=== PATIENT | male | born 1960 | race American Indian/Alaskan Native ===

== ENCOUNTER 2016-04-08 16:35 | Emergency (ER) | payer MEDICARE ==
[2016-04-08] MEDS ORDERED: DECADRON IM ONE (19:50)
[2016-04-08] MEDS ORDERED: MORPHINE IM ONE (19:50)
--- NOTE | 2016-04-08 19:55 | Emergency Department Report ---
ED Back Pain/Injury HPI - General Chief Complaint: Back Pain/Injury Stated Complaint: BACK PAIN Time Seen by Provider: 04/08/16 19:04 Source: patient Limitations: No Limitations - History of Present Illness Initial Comments: Patient is a 55-year-old male with history of chronic back pain who presents due to low back pain 3 days, patient states that he slept on the couch 3 days ago and has had severe back pain since then. Patient states that he injured his back 10 years ago and has had lumbar spine surgery. Patient states that he sees Dr. De Leon for his back pain and has an appointment in 2 weeks. Patient denies any numbness, tingling, urinary or bowel incontinence. Chin denies dysuria, hematuria or frequency. MD Complaint: back pain Onset/Timin -: days(s) Similar Symptoms Previously: Yes Place: home Radiation: none Severity: severe Severity scale (0 -10): 10 Quality: burning, sharp Consistency: constant Improves With: none Worsens With: walking Context: unknown Associated Symptoms: denies other symptoms - Related Data Home Medications Medication Instructions Recorded Confirmed Last Taken Lisinopril/Hydrochlorothiazide 20 mg PO DAILY 12/03/14 12/03/14 Unknown [Zestoretic 20-25 mg] Previous Rx's Medication Instructions Recorded Last Taken Type Cyclobenzaprine [Flexeril 10 MG 10 mg PO TID PRN #20 tablet 12/03/14 Unknown Rx TAB] HYDROcodone/APAP 10-325 [Lindstrom 1 each PO Q8HR PRN #20 tablet 12/03/14 Unknown Rx 10/325] Naproxen [Naprosyn TAB] 500 mg PO BID PRN #20 tablet 12/03/14 Unknown Rx HYDROcodone/APAP 5-325 [Lindstrom 1 each PO Q6HR PRN #10 tablet 04/15/15 Unknown Rx 5/325] HYDROcodone/APAP 7.5-325 [Lindstrom 1 each PO Q6HR PRN #15 tablet 04/08/16 Unknown Rx 7.5-325 mg TAB] Ibuprofen [Motrin 800 MG tab] 800 mg PO Q8HR PRN #30 tablet 04/08/16 Unknown Rx methOCARBAMOL [Robaxin TAB] 500 mg PO Q8HR PRN #15 tablet 04/08/16 Unknown Rx Allergies Allergy/AdvReac Type Severity Reaction Status Date / Time No Known Allergies Allergy Verified 04/08/16 16:56 ED Review of Systems ROS: Stated complaint: BACK PAIN Other details as noted in HPI Comment: All other systems reviewed and negative Constitutional: no symptoms reported. denies: chills, diaphoresis, fever, malaise, weakness Eyes: denies: eye pain, eye discharge, vision change Respiratory: no symptoms reported Cardiovascular: denies: chest pain, palpitations, dyspnea on exertion Endocrine: no symptoms reported Gastrointestinal: denies: abdominal pain, nausea, vomiting, diarrhea, melena Genitourinary: denies: urgency, dysuria, frequency, hematuria, testicular pain, testicular mass Musculoskeletal: back pain. denies: joint swelling, arthralgia Skin: denies: rash Neurological: denies: headache, numbness, paresthesias, confusion ED Past Medical Hx - Past Medical History Hx Hypertension: Yes Hx Arthritis: Yes Additional medical history: CHRONIC BACK PAIN - Surgical History Hx Appendectomy: Yes Additional Surgical History: Back surgery X 3 - Social History Smoking Status: Never Smoker Substance Use Type: Prescribed - Medications Home Medications: Home Medications Medication Instructions Recorded Confirmed Last Taken Type Cyclobenzaprine [Flexeril 10 MG 10 mg PO TID PRN #20 tablet 12/03/14 Unknown Rx TAB] HYDROcodone/APAP 10-325 [Lindstrom 1 each PO Q8HR PRN #20 tablet 12/03/14 Unknown Rx 10/325] Lisinopril/Hydrochlorothiazide 20 mg PO DAILY 12/03/14 12/03/14 Unknown History [Zestoretic 20-25 mg] Naproxen [Naprosyn TAB] 500 mg PO BID PRN #20 tablet 12/03/14 Unknown Rx HYDROcodone/APAP 5-325 [Lindstrom 1 each PO Q6HR PRN #10 tablet 04/15/15 Unknown Rx 5/325] HYDROcodone/APAP 7.5-325 [Lindstrom 1 each PO Q6HR PRN #15 tablet 04/08/16 Unknown Rx 7.5-325 mg TAB] Ibuprofen [Motrin 800 MG tab] 800 mg PO Q8HR PRN #30 tablet 04/08/16 Unknown Rx methOCARBAMOL [Robaxin TAB] 500 mg PO Q8HR PRN #15 tablet 04/08/16 Unknown Rx ED Physical Exam - General Limitations: No Limitations General appearance: alert, in no apparent distress - Head Head exam: Present: atraumatic, normocephalic, normal inspection - Eye Eye exam: Present: normal appearance, PERRL, EOMI Pupils: Present: normal accommodation - Neck Neck exam: Present: normal inspection, full ROM. Absent: tenderness, meningismus, lymphadenopathy, thyromegaly - Respiratory Respiratory exam: Present: normal lung sounds bilaterally. Absent: respiratory distress, wheezes, rales, rhonchi, stridor, chest wall tenderness - Cardiovascular Cardiovascular Exam: Present: regular rate, normal rhythm, normal heart sounds - GI/Abdominal GI/Abdominal exam: Present: soft, normal bowel sounds. Absent: distended, tenderness, guarding, rebound, rigid - Extremities Exam Extremities exam: Present: normal inspection, full ROM. Absent: tenderness - Back Exam Back exam: Present: tenderness (patient had tenderness with palpation of his mid lumbar spine, there was a visible previous surgical scar. No erythema no edema.), paraspinal tenderness, vertebral tenderness. Absent: CVA tenderness (R ), CVA tenderness (L), muscle spasm, rash noted - Neurological Exam Neurological exam: Present: alert, oriented X3, CN II-XII intact, normal gait, reflexes normal, other (no neurological focal deficits, sensory function was intact, motor strength was 5 out of 5. Patient had normal gait and ambulation.) . Absent: motor sensory deficit ED Course Vital Signs 04/08/16 16:58 Temperature 97.6 F Pulse Rate 82 Respiratory 19 Rate Blood Pressure 121/82 O2 Sat by Pulse 99 Oximetry ED Medical Decision Making - Medical Decision Making Patient was in no acute distress, patient had no neurological focal deficits, motor strength was 5 out of 5, normal gait and ambulation. Patient refuses any x-rays or CTs of his lumbar spine. Patient states that he has an appointment in 2 weeks and wants to follow up with his clin application specialist. Patient stated that he only wanted pain medicine to last him until he could see his clin application specialist in 2 weeks. Patient denies any urinary or bowel incontinence, he denied any numbness or tingling sensation. Patient denied any falls or trauma to his back. Patient thinks he aggravated his back by sleeping on the couch. - Differential Diagnosis number strain, muscle spasms, lumbar radiculopathy Critical care attestation.: If time is entered above; I have spent that time in minutes in the direct care of this critically ill patient, excluding procedure time. ED Disposition Clinical Impression: Muscle spasm of back Lumbar strain Qualifiers: Encounter type: initial encounter Qualified Code(s): S39.012A - Strain of muscle, fascia and tendon of lower back, initial encounter Disposition: DISCHARGED TO HOME OR SELFCARE Is pt being admited?: No Does the pt Need Aspirin: No Condition: Good Instructions: Muscle Strain (ED) Additional Instructions: Take hydrocodone 7.5 mg every 6 hours as needed for severe pain, take ibuprofen 100 mg every 8 hours as needed for moderate pain. Take Robaxin 500 mg every 8 hours as needed for muscle spasms. Follow-up with your clin application specialist of the provided clin application specialist for further evaluation of your back. Return to the ER if he started having any urinary or bowel incontinence, return to the ED if he started having numbness or tingling in the lower extremities. Prescriptions: HYDROcodone/APAP 7.5-325 [Lindstrom 7.5-325 mg TAB] 1 each PO Q6HR PRN #15 tablet PRN Reason: Pain Ibuprofen [Motrin 800 MG tab] 800 mg PO Q8HR PRN #30 tablet PRN Reason: Pain methOCARBAMOL [Robaxin TAB] 500 mg PO Q8HR PRN #15 tablet PRN Reason: Muscle Spasm Referrals: PRIMARY CARE, [Primary Care Provider] - 3-5 Days Time of Disposition: 19:58
[2016-04-08 20:10] VITALS: BP 120/78
== END 2016-04-08 20:16 | disposition home or self-care (01) ==
LOC: ED 16:35
DX: S39.012A Strain of muscle, fascia and tendon of lower back, initial encounter (principal); M62.830 Muscle spasm of back; I10 Essential (primary) hypertension; M19.90 Unspecified osteoarthritis, unspecified site; G89.29 Other chronic pain; Z90.49 Acquired absence of other specified parts of digestive tract; X58.XXXA Exposure to other specified factors, initial encounter; Y93.89 Activity, other specified; Y99.8 Other external cause status; Y92.098 Other place in other non-institutional residence as the place of occurrence of the external cause
CPT/HCPCS: 96372; 99282; J1100; J2270

== ENCOUNTER 2016-04-20 11:34 | Emergency (ER) | payer MEDICARE ==
[2016-04-20 11:45] VITALS: BP 135/70
== END 2016-04-20 14:40 | disposition left against medical advice (07) ==
LOC: ED 11:34
DX: R20.0 Anesthesia of skin (principal); M25.512 Pain in left shoulder; I10 Essential (primary) hypertension; M19.90 Unspecified osteoarthritis, unspecified site; G89.29 Other chronic pain; Z53.21 Procedure and treatment not carried out due to patient leaving prior to being seen by health care provider

== ENCOUNTER 2017-10-28 09:27 | Inpatient (IN) | payer MEDICARE ==
[2017-10-28] MEDS ORDERED: NACL 0.9% 1000 ML IV ONE (11:33)
[2017-10-28] MEDS ORDERED: ZOSYN/NS 4.5GM/100ML 4.5 GM/100 ML VIAL IV ONE (11:34)
[2017-10-28] MEDS ORDERED: TORADOL IV ONE (11:35)
[2017-10-28] MEDS ORDERED: DILAUDID IV ONE ×2 (11:35→15:21)
[2017-10-28] MEDS ORDERED: ZOFRAN IV ONE (11:35)
--- NOTE | 2017-10-28 11:36 | Emergency Department Report ---
Blank Doc - Documentation Documentation: Patient is a 57-year-old -[place] male who's had 3-4 days of nausea and diffuse abdominal pain. Patient had a recent road trip to [place] has some increased back pain over his baseline however he states that the majority of his pain is is abdominal. Patient says some nausea vomiting as well. Patient denies diarrhea. A focused physical exam patient is very tender to palpation with some voluntary guarding. There is no rebound tenderness. Patient is tachycardic and diaphoretic. Patient is in moderate distress secondary to pain. Patient will be started on sepsis protocol. Patient will be sent to the main ED for additional treatment.
[2017-10-28 12:21] LABS: Basophils # (Auto) 0.1 K/mm3 (0.0-0.1); Basophils % (Auto) 0.5 % (0.0-1.8); Eosinophils # (Auto) 0.2 K/mm3 (0.0-0.4); Eosinophils % (Auto) 1.1 % (0.0-4.3); Hematocrit 45.8 % (35.5-45.6); Hemoglobin 15.8 gm/dl (11.8-15.2); Lymphocytes # (Auto) 0.9 K/mm3 (1.2-5.4); Lymphocytes % (Auto) 5.6 % (13.4-35.0); Mean Corpuscular HGB Conc 35 % (32-34); Mean Corpuscular Hemoglobin 32 pg (28-32); Mean Corpuscular Volume 91 fl (84-94); Monocytes # (Auto) 0.8 K/mm3 (0.0-0.8); Monocytes % (Auto) 4.8 % (0.0-7.3); Platelet Count 210 K/mm3 (140-440); Red Blood Count 5.02 M/mm3 (3.65-5.03); Red Cell Distribution Width 13.9 % (13.2-15.2)
--- NOTE | 2017-10-28 12:26 | Emergency Department Report ---
ED Abdominal Pain HPI - General Chief Complaint: Back Pain/Injury Stated Complaint: BACK PAIN Time Seen by Provider: 10/28/17 11:28 Source: patient Mode of arrival: Wheelchair Limitations: No Limitations - History of Present Illness Initial Comments: 57-year-old male with history of hypertension and chronic back pain presents to the ED with complaints of abdominal pain fever and chills. She states pain and chills started one week ago, located in the periumbilical area. States pain was intermittent at the time, with nausea and vomiting. Patient denies diarrhea. States last bowel movement was today, small amount of stool. Patient denies dysuria, hematuria, or urinary frequency. Patient into ED today because pain became worse and generalized across entire stomach. Patient first past surgical history of appendectomy. MD Complaint: abdominal pain -: week(s) (1) Location: diffuse Radiation: none Migration to: no migration Severity: severe Quality: cramping, fullness Consistency: constant Improves With: nothing Worsens With: nothing Associated Symptoms: nausea, vomiting, fever, chills. denies: dysuria - Related Data Home Medications Medication Instructions Recorded Confirmed Last Taken Lisinopril/Hydrochlorothiazide 20 mg PO DAILY 12/03/14 12/03/14 Unknown [Zestoretic 20-25 mg] Previous Rx's Medication Instructions Recorded Last Taken Type Cyclobenzaprine [Flexeril 10 MG 10 mg PO TID PRN #20 tablet 12/03/14 Unknown Rx TAB] HYDROcodone/APAP 10-325 [Josephine 1 each PO Q8HR PRN #20 tablet 12/03/14 Unknown Rx 10/325] Naproxen [Naprosyn TAB] 500 mg PO BID PRN #20 tablet 12/03/14 Unknown Rx HYDROcodone/APAP 5-325 [Josephine 1 each PO Q6HR PRN #10 tablet 04/15/15 Unknown Rx 5/325] HYDROcodone/APAP 7.5-325 [Josephine 1 each PO Q6HR PRN #15 tablet 04/08/16 Unknown Rx 7.5-325 mg TAB] Ibuprofen [Motrin 800 MG tab] 800 mg PO Q8HR PRN #30 tablet 04/08/16 Unknown Rx methOCARBAMOL [Robaxin TAB] 500 mg PO Q8HR PRN #15 tablet 04/08/16 Unknown Rx Allergies Allergy/AdvReac Type Severity Reaction Status Date / Time No Known Allergies Allergy Verified 04/08/16 16:56 ED Review of Systems ROS: Stated complaint: BACK PAIN Other details as noted in HPI Comment: All other systems reviewed and negative Constitutional: chills, diaphoresis, fever Gastrointestinal: abdominal pain, nausea, vomiting, constipation. denies: diarrhea ED Past Medical Hx - Past Medical History Hx Hypertension: Yes Hx Arthritis: Yes Additional medical history: CHRONIC BACK PAIN - Surgical History Hx Appendectomy: Yes Additional Surgical History: Back surgery X 3 - Social History Smoking Status: Current Every Day Smoker Substance Use Type: Alcohol, Marijuana - Medications Home Medications: Home Medications Medication Instructions Recorded Confirmed Last Taken Type Cyclobenzaprine [Flexeril 10 MG 10 mg PO TID PRN #20 tablet 12/03/14 Unknown Rx TAB] HYDROcodone/APAP 10-325 [Josephine 1 each PO Q8HR PRN #20 tablet 12/03/14 Unknown Rx 10/325] Lisinopril/Hydrochlorothiazide 20 mg PO DAILY 12/03/14 12/03/14 Unknown History [Zestoretic 20-25 mg] Naproxen [Naprosyn TAB] 500 mg PO BID PRN #20 tablet 12/03/14 Unknown Rx HYDROcodone/APAP 5-325 [Josephine 1 each PO Q6HR PRN #10 tablet 04/15/15 Unknown Rx 5/325] HYDROcodone/APAP 7.5-325 [Josephine 1 each PO Q6HR PRN #15 tablet 04/08/16 Unknown Rx 7.5-325 mg TAB] Ibuprofen [Motrin 800 MG tab] 800 mg PO Q8HR PRN #30 tablet 04/08/16 Unknown Rx methOCARBAMOL [Robaxin TAB] 500 mg PO Q8HR PRN #15 tablet 04/08/16 Unknown Rx ED Physical Exam - General Limitations: No Limitations General appearance: alert, other (obvious pain) - Head Head exam: Present: atraumatic, normocephalic - Eye Eye exam: Present: normal appearance - ENT ENT exam: Present: mucous membranes moist - Neck Neck exam: Present: normal inspection - Respiratory Respiratory exam: Present: normal lung sounds bilaterally. Absent: respiratory distress - Cardiovascular Cardiovascular Exam: Present: normal rhythm, tachycardia - GI/Abdominal GI/Abdominal exam: Present: distended (mild distention), tenderness (diffusely tender), diminished bowel sounds. Absent: bruit, pulsatile mass - Extremities Exam Extremities exam: Present: normal inspection - Neurological Exam Neurological exam: Present: alert, oriented X3 - Psychiatric Psychiatric exam: Present: normal affect, normal mood - Skin Skin exam: Present: warm, dry, intact, normal color ED Course Vital Signs 10/28/17 10/28/17 10/28/17 09:36 12:35 12:46 Temperature 100.2 F H Pulse Rate 116 H 93 H Respiratory 20 23 22 Rate Blood Pressure 103/53 142/58 O2 Sat by Pulse 96 97 Oximetry 10/28/17 10/28/17 10/28/17 13:00 13:23 13:34 Temperature Pulse Rate 97 H 88 Respiratory 17 20 21 Rate Blood Pressure 126/58 112/65 O2 Sat by Pulse 96 98 Oximetry 10/28/17 10/28/17 10/28/17 13:46 14:00 14:16 Temperature Pulse Rate 81 83 81 Respiratory 21 23 16 Rate Blood Pressure 112/65 112/65 128/65 O2 Sat by Pulse 98 97 97 Oximetry 10/28/17 10/28/17 14:30 14:42 Temperature 97.7 F Pulse Rate 79 Respiratory 22 Rate Blood Pressure 128/65 O2 Sat by Pulse 97 Oximetry - Consultations Consultation #1: 10/28/17 14:43 Spoke w/ gen surgeon, Dr Najera, aware of pt. States will take pt to OR. ED Medical Decision Making - Lab Data Result diagrams: 10/28/17 11:52 10/28/17 11:52 - Medical Decision Making 57-year-old male with perforated diverticulitis. Elevated white blood cell count, lactic acid normal. Spoke with Dr. Najera, general surgeon. Will take patient to the OR. Dr. Dwyer hospitalist to admit. Has already received one dose of Zosyn. Pain and vital signs improved. - Differential Diagnosis diverticulitis, perforated viscous, peritonitis, pancreatitis Critical care attestation.: If time is entered above; I have spent that time in minutes in the direct care of this critically ill patient, excluding procedure time. ED Disposition Clinical Impression: Perforation of sigmoid colon due to diverticulitis Disposition: [id number]-TRM GEN HOSP IP Is pt being admited?: Yes Condition: Stable Time of Disposition: 14:50
[2017-10-28] MEDS ORDERED: NACL 0.9% 100 ML ONE (12:36)
[2017-10-28 12:43] LABS: Alanine Aminotransferase 59 units/L (7-56); Albumin 4.6 g/dL (3.9-5); BUN/Creatinine Ratio 22; Blood Urea Nitrogen 22 mg/dL (9-20); Calcium 9.8 mg/dL (8.4-10.2); Hemolysis Index 1
[2017-10-28 13:04] LABS: Bilirubin,Urine NEG (Negative); Blood,Urine NEG (Negative); Color,Urine Amber (Yellow); WBC,Urine < 1.0 /HPF (0.0-6.0)
[2017-10-28] MEDS ORDERED: NACL 0.9% 1000 ML 1,000 ML ONE ×2 (13:34→16:44)
--- NOTE | 2017-10-28 13:46 | XRay Report ---
FINAL REPORT EXAM: XR ABD SERIES W CXR 1V HISTORY: abd pain COMPARISON: None. TECHNIQUE: Frontal view of the chest and three views of the abdomen FINDINGS: The cardiomediastinal silhouette is normal in appearance. The lungs are clear without focal consolidation. No pleural effusion or pneumothorax. Nonobstructive bowel gas pattern. No free air. No abnormal calcification. No organomegaly. No acute bony or soft tissue abnormality. Posterior fusion hardware is seen in the lower lumbar spine. IMPRESSION: Nonobstructive bowel gas pattern. No acute cardiopulmonary disease.
--- NOTE | 2017-10-28 14:10 | Cat Scan Report ---
FINAL REPORT EXAM: CT ABDOMEN PELVIS W CON HISTORY: abd pain COMPARISON: None. TECHNIQUE: Multiple contiguous axial images were obtained from the lung bases to the pubic symphysis after administration of IV contrast. Reformatted sagittal and coronal images were available for review. FINDINGS: Lung bases: Streaky atelectasis at the bilateral lung bases. Visualized heart and mediastinum: Normal. Liver: Normal. Spleen: Normal. Pancreas: Normal. Gallbladder and Biliary Tree: No calcified gallstones. No biliary ductal dilatation. Adrenal glands: Normal. Kidneys: Symmetric enhancement to both kidneys. No hydronephrosis. 2.8 centimeter simple appearing cyst in the superior pole of the right kidney. Bladder: Normal. Pelvic organs: Normal. Bowel: Diverticulosis of the sigmoid colon with adjacent focus of fluid and air measuring 1.5 centimeters. No evidence obstruction. Normal appendix. Peritoneum: Scattered foci of free air throughout the abdomen. No free fluid. Vasculature: Normal caliber of the abdominal aorta with atherosclerotic plaque and calcification. Normal appearance of the portal venous system and the inferior vena cava. Bones and soft tissues: No suspicious osseous lesions. No acute fracture or dislocation. Posterior fusion hardware is seen at L5-S1. Soft tissues are normal. IMPRESSION: Findings are compatible with acute diverticulitis with associated perforation. 1.5 centimeter fluid and air collection adjacent to the sigmoid colon. Scattered foci of free intraperitoneal air. Findings were discussed with Dr. Garduno at 2:09 p.m., Eastern standard time, on 10/28/2017.
[2017-10-28] MEDS ORDERED: XYLOCAINE MPF 2% ONE (15:49)
[2017-10-28] MEDS ORDERED: DIPRIVAN 10 MG/ML IV ONE (15:49)
[2017-10-28] MEDS ORDERED: ZEMURON IV ONE ×2 (15:49→17:40)
[2017-10-28] MEDS ORDERED: DILAUDID ONE (15:52)
--- NOTE | 2017-10-28 16:10 | History and Physical Report ---
History of Present Illness Date of examination: 10/28/17 Date of admission: 10/28/2017 Chief complaint: Chief complaint Severe abdominal pain off and on for one week History of present illness: History of Present Illness: 57-year-old black male with history of hypertension and chronic back pain comes in for severe abdominal pain fever and chills which started one week ago. Abdominal pain has been intermittent and sharp in nature. Pain is about 8 on a scale of 1-10. Associated with nausea and vomiting. Pain is more in the periumbilical area. Also low-grade fever. No dysuria or urinary frequency. No hematemesis or bright red blood per rectum.. Pain is localized to the periumbilical area with no radiation. No exacerbating or relieving factors Past Medical History Hypertension: Yes Arthritis: Yes Additional medical history: CHRONIC BACK PAIN Surgical History Appendectomy: Yes Additional Surgical History: Back surgery X 3 Social History Smoking Status: Current Every Day Smoker Substance Use Type: Alcohol, Marijuana Family history Htn Medications Home Medications: Home Medications Medication Instructions Recorded Confirmed Last Taken Type Cyclobenzaprine [Flexeril 10 MG 10 mg PO TID PRN #20 tablet 12/03/14 Unknown Rx TAB] HYDROcodone/APAP 10-325 [[place] 1 each PO Q8HR PRN #20 tablet 12/03/14 Unknown Rx 10/325] Lisinopril/Hydrochlorothiazide 20 mg PO DAILY 12/03/14 12/03/14 Unknown History [Zestoretic 20-25 mg] Naproxen [Naprosyn TAB] 500 mg PO BID PRN #20 tablet 12/03/14 Unknown Rx HYDROcodone/APAP 5-325 [[place] 1 each PO Q6HR PRN #10 tablet 04/15/15 Unknown Rx 5/325] HYDROcodone/APAP 7.5-325 [[place] 1 each PO Q6HR PRN #15 tablet 04/08/16 Unknown Rx 7.5-325 mg TAB] Ibuprofen [Motrin 800 MG tab] 800 mg PO Q8HR PRN #30 tablet 04/08/16 Unknown Rx methOCARBAMOL [Robaxin TAB] 500 mg PO Q8HR PRN #15 tablet 04/08/16 Unknown Rx Review of systems: Stated complaint: BACK PAIN Other details as noted in HPI Comment: All other systems reviewed and negative Constitutional: chills, diaphoresis, fever Gastrointestinal: abdominal pain, nausea, vomiting, constipation. denies: diarrhea Medications and Allergies Allergies Allergy/AdvReac Type Severity Reaction Status Date / Time No Known Allergies Allergy Verified 04/08/16 16:56 Home Medications Medication Instructions Recorded Confirmed Last Taken Type Cyclobenzaprine [Flexeril 10 MG 10 mg PO TID PRN #20 tablet 12/03/14 Unknown Rx TAB] HYDROcodone/APAP 10-325 [[place] 1 each PO Q8HR PRN #20 tablet 12/03/14 Unknown Rx 10/325] Lisinopril/Hydrochlorothiazide 20 mg PO DAILY 12/03/14 12/03/14 Unknown History [Zestoretic 20-25 mg] Naproxen [Naprosyn TAB] 500 mg PO BID PRN #20 tablet 12/03/14 Unknown Rx HYDROcodone/APAP 5-325 [[place] 1 each PO Q6HR PRN #10 tablet 04/15/15 Unknown Rx 5/325] HYDROcodone/APAP 7.5-325 [[place] 1 each PO Q6HR PRN #15 tablet 04/08/16 Unknown Rx 7.5-325 mg TAB] Ibuprofen [Motrin 800 MG tab] 800 mg PO Q8HR PRN #30 tablet 04/08/16 Unknown Rx methOCARBAMOL [Robaxin TAB] 500 mg PO Q8HR PRN #15 tablet 04/08/16 Unknown Rx Exam - Physical Exam Narrative exam: Standing in his room and comfortable - Constitutional Vitals: Temp Pulse Resp BP Pulse Ox 97.7 F 79 22 128/65 97 10/28/17 14:42 10/28/17 14:30 10/28/17 14:30 10/28/17 14:30 10/28/17 14:30 General appearance: Present: mild distress (secondary to abdominal pain), well- nourished - EENT Eyes: Present: PERRL ENT: hearing intact, clear oral mucosa - Neck Neck: Present: supple, normal ROM - Respiratory Respiratory effort: normal Respiratory: bilateral: CTA - Cardiovascular Heart rate: 100 Rhythm: regular Heart Sounds: Present: S1 & S2. Absent: rub, click - Extremities Extremities: no ischemia, pulses intact (will), pulses symmetrical, No edema Peripheral Pulses: within normal limits - Abdominal General gastrointestinal: Present: soft, non-tender, non-distended, normal bowel sounds Localized gastrointestinal: tender: diffuse, epigastric periumbilical (Bowel sounds present), guarding: diffuse Male genitourinary: Present: normal - Integumentary Integumentary: Present: clear, warm, dry - Musculoskeletal Musculoskeletal: gait normal, strength equal bilaterally - Psychiatric Psychiatric: appropriate mood/affect, intact judgment & insight - Neurologic Neurologic: CNII-XII intact, moves all extremities - Allied Health Allied health notes reviewed: nursing, case management Results - Labs CBC & Chem 7: 10/28/17 11:52 10/28/17 11:52 Labs: Laboratory Last Values WBC 16.1 K/mm3 (4.5-11.0) H 10/28/17 11:52 RBC 5.02 M/mm3 (3.65-5.03) 10/28/17 11:52 Hgb 15.8 gm/dl (11.8-15.2) H 10/28/17 11:52 Hct 45.8 % (35.5-45.6) H 10/28/17 11:52 MCV 91 fl (84-94) 10/28/17 11:52 MCH 32 pg (28-32) 10/28/17 11:52 MCHC 35 % (32-34) H 10/28/17 11:52 RDW 13.9 % (13.2-15.2) 10/28/17 11:52 Plt Count 210 K/mm3 (140-440) 10/28/17 11:52 Lymph % (Auto) 5.6 % (13.4-35.0) L 10/28/17 11:52 [place] % (Auto) 4.8 % (0.0-7.3) 10/28/17 11:52 Eos % (Auto) 1.1 % (0.0-4.3) 10/28/17 11:52 Baso % (Auto) 0.5 % (0.0-1.8) 10/28/17 11:52 Lymph # 0.9 K/mm3 (1.2-5.4) L 10/28/17 11:52 [place] # 0.8 K/mm3 (0.0-0.8) 10/28/17 11:52 Eos # 0.2 K/mm3 (0.0-0.4) 10/28/17 11:52 Baso # 0.1 K/mm3 (0.0-0.1) 10/28/17 11:52 Seg Neutrophils % 88.0 % (40.0-70.0) H 10/28/17 11:52 Seg Neutrophils # 14.2 K/mm3 (1.8-7.7) H 10/28/17 11:52 Sodium 134 mmol/L (137-145) L 10/28/17 11:52 Potassium 4.3 mmol/L (3.6-5.0) 10/28/17 11:52 Chloride 91.4 mmol/L (98-107) L 10/28/17 11:52 Carbon Dioxide 28 mmol/L (22-30) 10/28/17 11:52 Anion Gap 19 mmol/L 10/28/17 11:52 BUN 22 mg/dL (9-20) H 10/28/17 11:52 Creatinine 1.0 mg/dL (0.8-1.5) 10/28/17 11:52 Estimated GFR > 60 ml/min 10/28/17 11:52 BUN/Creatinine Ratio 22 % 10/28/17 11:52 Glucose 95 mg/dL (75-100) 10/28/17 11:52 Lactic Acid 0.60 mmol/L (0.7-2.0) L 10/28/17 14:42 Calcium 9.8 mg/dL (8.4-10.2) 10/28/17 11:52 Total Bilirubin 1.40 mg/dL (0.1-1.2) H 10/28/17 11:52 AST 34 units/L (5-40) 10/28/17 11:52 ALT 59 units/L (7-56) H 10/28/17 11:52 Alkaline Phosphatase 84 units/L (35-129) 10/28/17 11:52 Total Protein 8.0 g/dL (6.3-8.2) 10/28/17 11:52 Albumin 4.6 g/dL (3.9-5) 10/28/17 11:52 Albumin/Globulin Ratio 1.4 % 10/28/17 11:52 Lipase 14 units/L (13-60) 10/28/17 11:50 Urine Color [place] (Yellow) 10/28/17 10:10 Urine Turbidity Clear (Clear) 10/28/17 10:10 Urine pH 7.0 (5.0-7.0) 10/28/17 10:10 Ur Specific [place] 1.020 (1.003-1.030) 10/28/17 10:10 Urine Protein 30 mg/dl mg/dL (Negative) 10/28/17 10:10 Urine Glucose (UA) Neg mg/dL (Negative) 10/28/17 10:10 Urine Ketones Neg mg/dL (Negative) 10/28/17 10:10 Urine Blood Neg (Negative) 10/28/17 10:10 Urine Nitrite Neg (Negative) 10/28/17 10:10 Urine Bilirubin Neg (Negative) 10/28/17 10:10 Urine Urobilinogen 4.0 mg/dL (<2.0) 10/28/17 10:10 Ur Leukocyte Esterase Neg (Negative) 10/28/17 10:10 Urine WBC (Auto) < 1.0 /HPF (0.0-6.0) 10/28/17 10:10 Urine RBC (Auto) 1.0 /HPF (0.0-6.0) 10/28/17 10:10 - Imaging and Cardiology EKG: report reviewed (sinus tachycardia heart rate of [address]-T wave changes EKG interpreted by me) Imaging and Cardiology: CT abdomen and pelvis IMPRESSION: Findings are compatible with acute diverticulitis with associated perforation. 1.5 centimeter fluid and air collection adjacent to the sigmoid colon. Scattered foci of free intraperitoneal air. Findings were discussed with Dr. Garduno at 2:09 p.m., Eastern standard time, on 10/28/2017. Assessment and Plan Assessment and plan: - Patient Problems (1) Perforation of sigmoid colon due to diverticulitis Current Visit: Yes Status: Acute Plan to address problem: Patient initiated on IV Zosyn and IV Flagyl Surgery consult requested by Dr. Najera Patient being taken to the operating room (2) Hypertension Current Visit: Yes Status: Chronic Qualifiers: Hypertension type: essential hypertension Qualified Code(s): I10 - Essential (primary) hypertension Plan to address problem: Clonidine patch for now in the form of [id number] every week (3) Mid back pain Current Visit: Yes Status: Chronic Plan to address problem: Morphine as necessary Continue Percocet 5/325 4 times a day when necessary (4) DVT prophylaxis Lovenox initiated GI prophylaxis initiated Advance Directives: Yes (full code) VTE prophylaxis?: Chemical Plan of care discussed with patient/family: Yes
[2017-10-28] MEDS ORDERED: TYLENOL PO PRN (16:12)
[2017-10-28] MEDS ORDERED: MORPHINE IV PRN ×2 (16:12→19:23)
[2017-10-28] MEDS ORDERED: SODIUM CHLORIDE FLUSH SYRINGE 10 ML IV PRN (16:12)
--- NOTE | 2017-10-28 16:31 | Progress Note ---
Assessment and Plan Full consult dictated 57 y/o male perf diverticulitis with free air Abd - diffuse tenderness and guarding as above acute abd peritonitis will proceed with emergency expl lap, sigmoid colectomy and colostomy proc, indications, and complications, reviewed with pt. consent signed Laboratory Tests 10/28/17 10/28/17 11:52 11:52 WBC 16.1 H Hgb 15.8 H Hct 45.8 H Sodium 134 L Potassium 4.3 Chloride 91.4 L BUN 22 H Creatinine 1.0 Total Bilirubin 1.40 H AST 34 ALT 59 H Alkaline Phosphatase 84 Objective Vital Signs - 12hr 10/28/17 10/28/17 10/28/17 09:36 12:35 12:46 Temperature 100.2 F H Pulse Rate 116 H 93 H Respiratory 20 23 22 Rate Blood Pressure 103/53 142/58 O2 Sat by Pulse 96 97 Oximetry 10/28/17 10/28/17 10/28/17 13:00 13:23 13:34 Temperature Pulse Rate 97 H 88 Respiratory 17 20 21 Rate Blood Pressure 126/58 112/65 O2 Sat by Pulse 96 98 Oximetry 10/28/17 10/28/17 10/28/17 13:46 14:00 14:16 Temperature Pulse Rate 81 83 81 Respiratory 21 23 16 Rate Blood Pressure 112/65 112/65 128/65 O2 Sat by Pulse 98 97 97 Oximetry 10/28/17 10/28/17 14:30 14:42 Temperature 97.7 F Pulse Rate 79 Respiratory 22 Rate Blood Pressure 128/65 O2 Sat by Pulse 97 Oximetry - Labs 10/28/17 11:52 10/28/17 11:52 Diabetes panel 10/28/17 Range/Units 11:52 Sodium 134 L (137-145) mmol/L Potassium 4.3 (3.6-5.0) mmol/L Chloride 91.4 L (98-107) mmol/L Carbon Dioxide 28 (22-30) mmol/L BUN 22 H (9-20) mg/dL Creatinine 1.0 (0.8-1.5) mg/dL Glucose 95 (75-100) mg/dL Calcium 9.8 (8.4-10.2) mg/dL AST 34 (5-40) units/L ALT 59 H (7-56) units/L Alkaline Phosphatase 84 (35-129) units/L Total Protein 8.0 (6.3-8.2) g/dL Albumin 4.6 (3.9-5) g/dL Calcium panel 10/28/17 Range/Units 11:52 Calcium 9.8 (8.4-10.2) mg/dL Albumin 4.6 (3.9-5) g/dL Pituitary panel 10/28/17 Range/Units 11:52 Sodium 134 L (137-145) mmol/L Potassium 4.3 (3.6-5.0) mmol/L Chloride 91.4 L (98-107) mmol/L Carbon Dioxide 28 (22-30) mmol/L BUN 22 H (9-20) mg/dL Creatinine 1.0 (0.8-1.5) mg/dL Glucose 95 (75-100) mg/dL Calcium 9.8 (8.4-10.2) mg/dL Adrenal panel 10/28/17 Range/Units 11:52 Sodium 134 L (137-145) mmol/L Potassium 4.3 (3.6-5.0) mmol/L Chloride 91.4 L (98-107) mmol/L Carbon Dioxide 28 (22-30) mmol/L BUN 22 H (9-20) mg/dL Creatinine 1.0 (0.8-1.5) mg/dL Glucose 95 (75-100) mg/dL Calcium 9.8 (8.4-10.2) mg/dL Total Bilirubin 1.40 H (0.1-1.2) mg/dL AST 34 (5-40) units/L ALT 59 H (7-56) units/L Alkaline Phosphatase 84 (35-129) units/L Total Protein 8.0 (6.3-8.2) g/dL Albumin 4.6 (3.9-5) g/dL
[2017-10-28] MEDS ORDERED: NACL 0.9% 1000 ML 1,000 ML IV SCH (17:00)
[2017-10-28] MEDS ORDERED: FLAGYL 500 MG/100 ML 500 MG/100 ML BAG IV SCH (17:00)
[2017-10-28] MEDS ORDERED: LOVENOX SUB-Q SCH (17:00)
[2017-10-28] MEDS ORDERED: DECADRON ONE (17:36)
[2017-10-28] MEDS ORDERED: ZOFRAN ONE (18:44)
[2017-10-28] MEDS ORDERED: ROBINUL ONE (19:00)
[2017-10-28] MEDS ORDERED: BLOXIVERZ ONE (19:00)
[2017-10-28] MEDS ORDERED: VERSED ONE ×2 (19:36→19:38)
--- NOTE | 2017-10-28 20:30 | Operative Report ---
PREOPERATIVE DIAGNOSES: Rule out acute abdomen secondary to perforated diverticulitis with abscess formation and perforation. POSTOPERATIVE DIAGNOSES: Rule out acute abdomen secondary to perforated diverticulitis with abscess formation and perforation. PROCEDURES: 1. Emergency exploratory laparotomy. 2. Lysis of adhesions. 3. Sigmoid colectomy with a Bc pouch and end colostomy. SURGEON: Bernardo Najera MD DRAINS: None. COMPLICATIONS: None. DESCRIPTION OF PROCEDURE: The patient was taken to the operating room, prepped and draped in the usual sterile fashion. Midline incision was made and abdomen entered. Upon entrance into the abdomen, some purulence was noted in the pelvis. Aerobic and anaerobic cultures were taken. Initial palpation of the sigmoid colon revealed to be within normal limits. However, deeper palpation down to the rectosigmoid region did reveal a large mass with perforation. A TA-55 was used deep in the pelvis by the distal rectum. Another TA was used proximal and then the distal sigmoid transected. Approximately, MAURY was used to transect the sigmoid colon in the area of normal tissue proximal to the inflammation and perforation. Fair amount of adhesions were noted in the area, the small bowel also adhered to the abscess. A slow dissection had to be carried out in the small bowel, isolated, and freed from the sigmoid abscess. LigaSure was used to transect the mesentery and the sigmoid and the perforated sigmoid colon removed. The entire area was irrigated copiously and dried, checked for hemostasis and noted to be dry. The patient was then placed in reverse Trendelenburg position and the entire abdomen copiously irrigated and suctioned dry. The subphrenic space as well as colonic gutters were also copiously irrigated. The patient was then re-flattened. NG tube was palpated and noted to be in good position. The end colostomy was then brought out in the left lower quadrant of the abdomen. The colon was difficult to mobilize due to the patient's obesity, but the colon eventually had to be mobilized past the splenic flexure in order to be able to bring out as an end colostomy. The colostomy was secured internally to the mesentery with interrupted 3-0 Vicryl suture. Anteriorly, the colostomy was secured to the fascia with interrupted 3-0 Vicryl sutures. The midline incision fascia was then closed with interrupted #1 Vicryl suture. Subcutaneous tissues irrigated and skin closed loosely with claus and packed with Telfa vee soaked in Betadine. Incision was then isolated from the colostomy with a towel. The colostomy was then matured by transecting the previously placed staple line. The ostomy was secured to the skin with interrupted 3-0 Vicryl sutures. Digital palpation of the ostomy with some K-wire was then performed to assure there was no twisting and the lumen was patent, which it was. The patient tolerated the procedure well and left the OR in stable condition. JOB# [id number] EVANGELISTA/JENNIFER
[2017-10-28] MEDS: MORPHINE IV PRN (21:19)
[2017-10-28] MEDS: DIFLUCAN 200 MG/100 ML BAG IV SCH (22:54)
[2017-10-28] MEDS: CATAPRES-TTS PATCH TD SCH (23:03)
[2017-10-28] MEDS: SODIUM CHLORIDE FLUSH SYRINGE 10 ML IV SCH (23:09)
[2017-10-28] MEDS: DILAUDID IV PRN (23:18)
[2017-10-28] MEDS: ZOSYN/NS 4.5GM/100ML 4.5 GM/100 ML VIAL IV SCH (23:21)
[2017-10-29] MEDS: MORPHINE IV PRN ×4 (01:43→23:51)
[2017-10-29] MEDS: NACL 0.9% 1000 ML 1,000 ML IV SCH ×3 (01:55→18:47)
--- NOTE | 2017-10-29 02:27 | Consultation ---
REASON FOR CONSULTATION: Rule out acute abdomen secondary to ruptured diverticulitis. HISTORY OF PRESENT ILLNESS: The patient is a pleasant 57-year-old gentleman, a former , who presents to the Emergency Room with recent history of fever, chills and a periumbilical abdominal pain. The patient states he has " PAST MEDICAL HISTORY: Hypertension. PAST SURGICAL HISTORY: Status post appendectomy as well as L3-L4 fusion. ALLERGIES: No known allergies. MEDICATIONS: Include occasional pain meds and lisinopril. FAMILY HISTORY: Negative. SOCIAL HISTORY: Smokes marijuana. Denies any cigarette smoking and a very occasional ethanol intake. PHYSICAL EXAMINATION: GENERAL: At this time reveals the patient to be awake, alert, cooperative, in obvious discomfort, but no acute distress. VITAL SIGNS: Show him to be afebrile with a temperature of 97.7, blood pressure 120/65, pulse is 79, respirations 22. ABDOMEN: Examination of the abdomen reveals him to be moderately obese. There is right lower quadrant paramedian scar, presumably from his previous appendectomy. Abdomen itself is diffusely tender with guarding throughout. Bowel sounds are absent. LABORATORY DATA: Lab work at present includes a CBC, which shows a white count of 16, H and H is 15 and 45. Electrolytes were essentially normal. Lipase is normal at 14. LFTs show total bilirubin of 1.4, AST is 34, ALT 59, alkaline phosphatase is 84. A CT scan of the abdomen has been performed. The findings are consistent with acute diverticulitis with associated perforation. There is 1.5 cm of fluid and air around the sigmoid colon with scattered foci of free intraperitoneal air. IMPRESSION: At this time that of a 57-year-old hypertensive, moderately obese male, rule out acute abdomen, rule out peritonitis secondary to perforated diverticular abscess. PLAN: To proceed with emergency exploratory laparotomy and sigmoid colectomy, and colostomy. Risk, indication, and complications have been reviewed with the patient who understands and has signed his consent. JOB# [id number] EVANGELISTA/JENNIFER
[2017-10-29] MEDS: DILAUDID IV PRN ×6 (03:54→22:08)
[2017-10-29] MEDS: ZOSYN/NS 4.5GM/100ML 4.5 GM/100 ML VIAL IV SCH ×3 (05:45→22:08)
[2017-10-29 06:19] LABS: Basophils # (Auto) 0.1 K/mm3 (0.0-0.1); Basophils % (Auto) 0.5 % (0.0-1.8); Eosinophils % (Auto) 0.1 % (0.0-4.3); Hematocrit 37.8 % (35.5-45.6); Hemoglobin 13.4 gm/dl (11.8-15.2); Lymphocytes % (Auto) 6.5 % (13.4-35.0); Mean Corpuscular HGB Conc 35 % (32-34); Mean Corpuscular Hemoglobin 32 pg (28-32); Mean Corpuscular Volume 91 fl (84-94); Monocytes # (Auto) 0.7 K/mm3 (0.0-0.8); Monocytes % (Auto) 4.8 % (0.0-7.3); Platelet Count 212 K/mm3 (140-440); Red Blood Count 4.17 M/mm3 (3.65-5.03); Red Cell Distribution Width 14.1 % (13.2-15.2)
[2017-10-29 06:42] LABS: Alanine Aminotransferase 47 units/L (7-56); Albumin 3.9 g/dL (3.9-5); BUN/Creatinine Ratio 23; Blood Urea Nitrogen 18 mg/dL (9-20); Calcium 8.6 mg/dL (8.4-10.2); Hemolysis Index 3
[2017-10-29] MEDS: SODIUM CHLORIDE FLUSH SYRINGE 10 ML IV SCH ×2 (09:36→23:52)
--- NOTE | 2017-10-29 12:16 | Progress Note ---
Assessment and Plan POD # 1 Pt feeling well without compl Abd soft, dressings dry. ostomy pink surgically stable june d/c jesus UA C&S before d/c Selected Entries 10/29/17 10/29/17 08:00 11:11 Temperature 98.3 F Pulse Rate 65 O2 Sat by Pulse 96 Oximetry Blood Pressure 141/81 Laboratory Tests 10/29/17 10/29/17 05:57 05:57 WBC 15.1 H Hgb 13.4 Hct 37.8 D Sodium 136 L Potassium 4.5 Chloride 101.9 Carbon Dioxide 22 Anion Gap 17 BUN 18 Creatinine 0.8 Objective Vital Signs - 12hr 10/29/17 10/29/17 10/29/17 01:43 02:40 02:57 Temperature Pulse Rate 72 74 Respiratory 25 H 14 14 Rate Blood Pressure O2 Sat by Pulse 96 97 Oximetry 10/29/17 10/29/17 10/29/17 03:01 03:11 03:21 Temperature Pulse Rate 74 68 72 Respiratory 15 16 15 Rate Blood Pressure O2 Sat by Pulse 97 98 96 Oximetry 10/29/17 10/29/17 10/29/17 03:31 03:41 03:51 Temperature Pulse Rate 73 72 75 Respiratory 16 14 26 H Rate Blood Pressure O2 Sat by Pulse 97 97 97 Oximetry 10/29/17 10/29/17 10/29/17 03:54 04:00 04:01 Temperature 98.6 F Pulse Rate 74 Respiratory 21 22 Rate Blood Pressure O2 Sat by Pulse 99 96 Oximetry 10/29/17 10/29/17 10/29/17 04:11 04:21 04:31 Temperature Pulse Rate 67 70 69 Respiratory 14 15 12 Rate Blood Pressure 128/76 128/76 128/76 O2 Sat by Pulse 97 96 96 Oximetry 10/29/17 10/29/17 10/29/17 04:41 04:51 05:00 Temperature Pulse Rate 74 74 70 Respiratory 13 13 18 Rate Blood Pressure 128/76 128/76 138/72 O2 Sat by Pulse 96 96 97 Oximetry 10/29/17 10/29/17 10/29/17 05:11 05:21 05:31 Temperature Pulse Rate 69 67 67 Respiratory 14 15 16 Rate Blood Pressure 128/76 128/76 128/76 O2 Sat by Pulse 97 97 97 Oximetry 09/17/18 09/17/18 09/17/18 05:41 05:46 05:51 Temperature Pulse Rate 77 81 Respiratory 19 18 22 Rate Blood Pressure 138/72 138/72 O2 Sat by Pulse 98 97 Oximetry 10/29/17 10/29/17 10/29/17 06:00 06:11 06:21 Temperature Pulse Rate 72 81 75 Respiratory 20 17 17 Rate Blood Pressure 136/74 136/74 136/74 O2 Sat by Pulse 96 96 95 Oximetry 10/29/17 10/29/17 10/29/17 06:31 06:39 06:41 Temperature Pulse Rate 70 67 Respiratory 20 19 18 Rate Blood Pressure 136/74 136/74 O2 Sat by Pulse 98 96 Oximetry 10/29/17 10/29/17 10/29/17 06:51 07:00 07:11 Temperature Pulse Rate 73 70 66 Respiratory 19 19 17 Rate Blood Pressure 136/74 136/73 136/73 O2 Sat by Pulse 96 96 97 Oximetry 10/29/17 10/29/17 10/29/17 07:21 07:31 07:41 Temperature Pulse Rate 72 66 68 Respiratory 17 14 18 Rate Blood Pressure 136/73 136/73 136/73 O2 Sat by Pulse 96 95 97 Oximetry 10/29/17 10/29/17 10/29/17 07:51 08:00 08:11 Temperature 98.3 F Pulse Rate 63 65 66 Respiratory 16 17 13 Rate Blood Pressure 136/73 131/67 131/67 O2 Sat by Pulse 96 96 96 Oximetry 10/29/17 10/29/17 10/29/17 08:21 08:31 08:41 Temperature Pulse Rate 67 65 75 Respiratory 19 14 20 Rate Blood Pressure 131/67 131/67 131/67 O2 Sat by Pulse 96 96 97 Oximetry 10/29/17 10/29/17 10/29/17 08:51 09:00 09:11 Temperature Pulse Rate 68 67 68 Respiratory 17 21 13 Rate Blood Pressure 131/67 137/76 137/76 O2 Sat by Pulse 97 97 96 Oximetry 10/29/17 10/29/17 10/29/17 09:21 09:31 09:41 Temperature Pulse Rate 69 82 72 Respiratory 21 18 17 Rate Blood Pressure 137/76 137/76 137/76 O2 Sat by Pulse 96 96 93 Oximetry 10/29/17 10/29/17 10/29/17 09:51 10:00 10:11 Temperature Pulse Rate 65 65 66 Respiratory 14 12 14 Rate Blood Pressure 137/76 137/76 133/72 O2 Sat by Pulse 94 95 94 Oximetry 10/29/17 10/29/17 10/29/17 10:21 10:31 10:41 Temperature Pulse Rate 64 64 64 Respiratory 15 14 12 Rate Blood Pressure 133/72 133/72 133/72 O2 Sat by Pulse 96 97 95 Oximetry 10/29/17 10/29/17 10/29/17 10:51 11:00 11:11 Temperature Pulse Rate 66 71 65 Respiratory 13 18 13 Rate Blood Pressure 133/72 141/81 141/81 O2 Sat by Pulse 96 97 96 Oximetry - Labs 10/29/17 05:57 10/29/17 05:57 Diabetes panel 10/28/17 10/28/17 10/29/17 Range/Units 11:52 17:33 05:57 Sodium 134 L 136 L (137-145) mmol/L Potassium 4.3 4.5 (3.6-5.0) mmol/L Chloride 91.4 L 101.9 (98-107) mmol/L Carbon Dioxide 28 22 (22-30) mmol/L BUN 22 H 18 (9-20) mg/dL Creatinine 1.0 0.8 (0.8-1.5) mg/dL Glucose 95 110 H (75-100) mg/dL Hemoglobin A1c 5.2 (4-6) % Calcium 9.8 8.6 (8.4-10.2) mg/dL AST 34 20 (5-40) units/L ALT 59 H 47 (7-56) units/L Alkaline Phosphatase 84 61 (35-129) units/L Total Protein 8.0 6.6 (6.3-8.2) g/dL Albumin 4.6 3.9 (3.9-5) g/dL Calcium panel 10/28/17 10/29/17 Range/Units 11:52 05:57 Calcium 9.8 8.6 (8.4-10.2) mg/dL Albumin 4.6 3.9 (3.9-5) g/dL Pituitary panel 10/28/17 10/29/17 Range/Units 11:52 05:57 Sodium 134 L 136 L (137-145) mmol/L Potassium 4.3 4.5 (3.6-5.0) mmol/L Chloride 91.4 L 101.9 (98-107) mmol/L Carbon Dioxide 28 22 (22-30) mmol/L BUN 22 H 18 (9-20) mg/dL Creatinine 1.0 0.8 (0.8-1.5) mg/dL Glucose 95 110 H (75-100) mg/dL Calcium 9.8 8.6 (8.4-10.2) mg/dL Adrenal panel 10/28/17 10/29/17 Range/Units 11:52 05:57 Sodium 134 L 136 L (137-145) mmol/L Potassium 4.3 4.5 (3.6-5.0) mmol/L Chloride 91.4 L 101.9 (98-107) mmol/L Carbon Dioxide 28 22 (22-30) mmol/L BUN 22 H 18 (9-20) mg/dL Creatinine 1.0 0.8 (0.8-1.5) mg/dL Glucose 95 110 H (75-100) mg/dL Calcium 9.8 8.6 (8.4-10.2) mg/dL Total Bilirubin 1.40 H 1.00 (0.1-1.2) mg/dL AST 34 20 (5-40) units/L ALT 59 H 47 (7-56) units/L Alkaline Phosphatase 84 61 (35-129) units/L Total Protein 8.0 6.6 (6.3-8.2) g/dL Albumin 4.6 3.9 (3.9-5) g/dL
--- NOTE | 2017-10-29 13:09 | Consultation ---
History of Present Illness - Reason for Consult Consult date: 10/29/17 sigmoid perf Requesting physician: HUMBLE WARREN - History of Present Illness 57 y/o male with history of hypertension and chronic back pain; admitted on due to 24 hours history of acute severe abdominal pain associated with nausea, vomiting and fever / chills. Initially Abdominal pain was periumbilical , intermittent and sharp in nature and started a week before admission. Pain is about 8 on a scale of 1-10. Unfortunately pain became excruciating and patient decided to come to the ED. He reports subjective fever. In the ED, initial temperature 100.2, heart rate 116, respiration 20, O2 sat 96% , blood pressure 103/53. Initial white count 16.1. Hemoglobin 15.8. Platelets 210. Creatinine 1. Lactic acid 1. CT of the abdomen findings are compatible with acute diverticulitis with associated perforation. 1.5 centimeter fluid and air collection adjacent to the sigmoid colon. Scattered foci of free intraperitoneal air. Patient was taken to the OR on 10/28/2017 for emergent exploratory laparoscopy, lysis of adhesions and sigmoid colectomy with Bc's pouch and end colostomy. Microbiology: Blood cultures: 10/28 ngtd OR cultures: 10/28 pending Current Antimicrobials: Zosyn Fluconazole Previous Antimicrobials: Past History Past Medical History: other (as per HPI) Social history: no significant social history Family history: no significant family history Medications and Allergies Allergies Allergy/AdvReac Type Severity Reaction Status Date / Time No Known Allergies Allergy Verified 04/08/16 16:56 Home Medications Medication Instructions Recorded Confirmed Last Taken Type Cyclobenzaprine [Flexeril 10 MG 10 mg PO TID PRN #20 tablet 12/03/14 Unknown Rx TAB] HYDROcodone/APAP 10-325 [[place] 1 each PO Q8HR PRN #20 tablet 12/03/14 Unknown Rx 10/325] Lisinopril/Hydrochlorothiazide 20 mg PO DAILY 12/03/14 12/03/14 Unknown History [Zestoretic 20-25 mg] Naproxen [Naprosyn TAB] 500 mg PO BID PRN #20 tablet 12/03/14 Unknown Rx HYDROcodone/APAP 5-325 [[place] 1 each PO Q6HR PRN #10 tablet 04/15/15 Unknown Rx 5/325] HYDROcodone/APAP 7.5-325 [[place] 1 each PO Q6HR PRN #15 tablet 04/08/16 Unknown Rx 7.5-325 mg TAB] Ibuprofen [Motrin 800 MG tab] 800 mg PO Q8HR PRN #30 tablet 04/08/16 Unknown Rx methOCARBAMOL [Robaxin TAB] 500 mg PO Q8HR PRN #15 tablet 04/08/16 Unknown Rx Active Meds: Active Medications Acetaminophen (Tylenol) 650 mg PO Q4H PRN PRN Reason: Pain MILD(1-3)/Fever >100.5/HERNANDEZ Clonidine HCl (Catapres-Tts Patch) 0.2 mg TD Leo RENE Last Admin: 10/28/17 23:03 Dose: 0.2 mg Hydromorphone HCl (Dilaudid) 1 mg IV Q3H PRN PRN Reason: Pain , Severe (7-10) Last Admin: 10/29/17 12:49 Dose: 1 mg Piperacillin Sod/Tazobactam Sod (Zosyn/Ns 4.5gm/100ml) 4.5 gm in 100 mls @ 200 mls/hr IV Q8HR RENE; Protocol Last Admin: 10/29/17 05:45 Dose: 200 mls/hr Fluconazole (Diflucan) 200 mg in 100 mls @ 100 mls/hr IV Q24H RENE; Protocol Last Admin: 10/28/17 22:54 Dose: 100 mls/hr Sodium Chloride (Nacl 0.9% 1000 Ml) 1,000 mls @ 125 mls/hr IV DIRECT RENE Last Admin: 10/29/17 10:08 Dose: 125 mls/hr Metoclopramide HCl (Reglan) 10 mg IV Q6H PRN PRN Reason: Nausea And Vomiting Morphine Sulfate (Morphine) 2 mg IV Q4H PRN PRN Reason: Pain, Moderate (4-6) Morphine Sulfate (Morphine) 4 mg IV Q3H PRN PRN Reason: Pain, Moderate (4-6) Last Admin: 10/29/17 05:46 Dose: 4 mg Ondansetron HCl (Zofran) 4 mg IV Q8H PRN PRN Reason: Nausea And Vomiting Sodium Chloride (Sodium Chloride Flush Syringe 10 Ml) 10 ml IV BID RENE Last Admin: 10/29/17 09:36 Dose: 10 ml Sodium Chloride (Sodium Chloride Flush Syringe 10 Ml) 10 ml IV PRN PRN PRN Reason: LINE FLUSH Review of Systems All systems: negative (as per HPI or is negative) Physical Examination - Physical Exam Narrative exam: General appearance: Alert in NAD, conversant Eyes: anicteric sclerae, moist conjunctivae; no lid-lag; PERRLA HENT: Atraumatic; oropharynx clear +NGT Neck: Trachea midline; supple, no thyromegaly or lymphadenopathy Lungs: CTA, with normal respiratory effort and no intercostal retractions CV: RRR Abdomen: Soft, diffuse tenderness, midline surgical wound with surgical dressings, colostomy bag. Extremities: No peripheral edema or extremity lymphadenopathy Skin: Normal temperature, turgor and texture; no rash, ulcers or subcutaneous nodules Psych: Appropriate affect, alert and oriented to person, place and time. Neuro: alert and oriented x 3. Moving all extermities Lines: lee - Constitutional Vitals: Vital Signs Temp Pulse Resp BP Pulse Ox 97.9 F 65 13 141/81 96 10/29/17 12:00 10/29/17 11:11 10/29/17 11:11 10/29/17 11:11 10/29/17 11:11 Temperature -Last 24 Hours Temperature 97.9 F Temperature 98.3 F Temperature 98.6 F Temperature 98.5 F Temperature 98.6 F Temperature 99.3 F Temperature 98.8 F Temperature 97.7 F Results - Labs CBC & Chem 7: 10/29/17 05:57 10/29/17 05:57 Labs: Abnormal lab results 10/28/17 10/29/17 10/29/17 Range/Units 14:42 05:57 05:57 WBC 15.1 H (4.5-11.0) K/mm3 MCHC 35 H (32-34) % Lymph % (Auto) 6.5 L (13.4-35.0) % Lymph # 1.0 L (1.2-5.4) K/mm3 Seg Neutrophils % 88.1 H (40.0-70.0) % Seg Neutrophils # 13.3 H (1.8-7.7) K/mm3 Sodium 136 L (137-145) mmol/L Glucose 110 H (75-100) mg/dL Lactic Acid 0.60 L (0.7-2.0) mmol/L Assessment and Plan Assessment: 1) Sepsis: Present on admission, manifested by fever, tachycardia, hypotension, leukocytosis. Etiology most likely diverticular abscess. -Blood cultures 10/28 ngtd 2) Sigmoid perforation with diverticular abscess: -CT of the abdomen findings are compatible with acute diverticulitis with associated perforation. 1.5 centimeter fluid and air collection adjacent to the sigmoid colon. Scattered foci of free intraperitoneal air. -S/P OR on 10/28/2017 for emergent exploratory laparoscopy, lysis of adhesions and sigmoid colectomy with Bc's pouch and end colostomy. -OR cultures pending 3) Hypertension 4) Chronic back pain Plan: -follow-up blood cultures, peritoneal culture -stop zosyn -start cefepime/flagyl -continue fluconazole -remove lee Thank you for your consultation, will follow up with you. Jovita Dewitt MD Infectious Diseases Specialist [facility] ([facility] M [phone] O [phone]
[2017-10-29] MEDS: CEPACOL X STRENGTH MM PRN ×2 (14:49→20:32)
--- NOTE | 2017-10-29 16:52 | XRay Report ---
FINAL REPORT PROCEDURE: Abdomen. TECHNIQUE: Semi upright AP view. HISTORY: confirm NGT placement COMPARISON: Abdominal series 10/28/2017. FINDINGS: The radiograph is centered on the upper abdomen. A nasogastric tube terminates in the stomach. The visualized bowel gas pattern is normal. The soft tissues and regional skeleton are unremarkable. IMPRESSION: Satisfactory nasogastric tube placement.
--- NOTE | 2017-10-29 16:59 | Progress Note ---
Assessment and Plan Assessment and plan: 57-year-old man presented to the emergency department with complaints of abdominal pain, initial around the periumbilical area and later generalized. Patient is septic and CT abdomen was done and showed diverticulitis with perforated sigmoid colon. General surgery was consulted, patient was taken to the OR on 10/28/2017 for emergent exploratory laparoscopy, lysis of adhesions and sigmoid colectomy with Bc's pouch and end colostomy. Perforation of sigmoid colon due to diverticulitis - Status post sigmoid colectomy with Bc's pouch and colostomy - IV fluid and IV antibiotics - Surgery isfollowing Sepsis secondary to perforated viscus - Fever, tachycardia, leukocytosis - Patient is on IV antibiotics - Infectious disease is following for adjustment of his IV antibiotics, currently on Zosyn, Flagyl Hypertension -On Clonidine patch for now Mid back pain Pain control for now DVT prophylaxis - On SCDs for now CODE STATUS is full Prognosis; Guarded Disposition - Continue inpatient care History Interval history: Patient was seen and evaluated this morning, status post colectomy, with end colostomy. Patient complains of abdominal pain. Hospitalist Physical - Physical exam Narrative exam: Not in cardiopulmonary distress. NG tube in place for suction. The patient is obese. Vital signs as documented. Head exam is unremarkable. No scleral icterus . Neck is without jugular venous distension, thyromegaly, or carotid bruits. Lungs are clear to auscultation. Cardiac exam reveals regular rate and Rhythm. First and second heart sounds normal. No murmurs, rubs or gallops. Abdominal exam reveals hypoactive bowel movement, tender. Extremities are nonedematous and both femoral and pedal pulses are normal. HEALTH SCIENCES PROGRAM COORDINATOR: Alert and oriented 3. No focal weakness. - Constitutional Vitals: Temp Pulse Resp BP Pulse Ox 98.0 F 78 16 148/83 97 10/29/17 15:57 10/29/17 16:21 10/29/17 16:21 10/29/17 16:21 10/29/17 16:21 General appearance: Present: mild distress (secondary to abdominal pain), well- nourished Results - Labs CBC & Chem 7: 10/29/17 05:57 10/29/17 05:57 Labs: Laboratory Last Values WBC 15.1 K/mm3 (4.5-11.0) H 10/29/17 05:57 RBC 4.17 M/mm3 (3.65-5.03) 10/29/17 05:57 Hgb 13.4 gm/dl (11.8-15.2) 10/29/17 05:57 Hct 37.8 % (35.5-45.6) D 10/29/17 05:57 MCV 91 fl (84-94) 10/29/17 05:57 MCH 32 pg (28-32) 10/29/17 05:57 MCHC 35 % (32-34) H 10/29/17 05:57 RDW 14.1 % (13.2-15.2) 10/29/17 05:57 Plt Count 212 K/mm3 (140-440) 10/29/17 05:57 Lymph % (Auto) 6.5 % (13.4-35.0) L 10/29/17 05:57 [place] % (Auto) 4.8 % (0.0-7.3) 10/29/17 05:57 Eos % (Auto) 0.1 % (0.0-4.3) 10/29/17 05:57 Baso % (Auto) 0.5 % (0.0-1.8) 10/29/17 05:57 Lymph # 1.0 K/mm3 (1.2-5.4) L 10/29/17 05:57 [place] # 0.7 K/mm3 (0.0-0.8) 10/29/17 05:57 Eos # 0.0 K/mm3 (0.0-0.4) 10/29/17 05:57 Baso # 0.1 K/mm3 (0.0-0.1) 10/29/17 05:57 Seg Neutrophils % 88.1 % (40.0-70.0) H 10/29/17 05:57 Seg Neutrophils # 13.3 K/mm3 (1.8-7.7) H 10/29/17 05:57 Sodium 136 mmol/L (137-145) L 10/29/17 05:57 Potassium 4.5 mmol/L (3.6-5.0) 10/29/17 05:57 Chloride 101.9 mmol/L (98-107) 10/29/17 05:57 Carbon Dioxide 22 mmol/L (22-30) 10/29/17 05:57 Anion Gap 17 mmol/L 10/29/17 05:57 BUN 18 mg/dL (9-20) 10/29/17 05:57 Creatinine 0.8 mg/dL (0.8-1.5) 10/29/17 05:57 Estimated GFR > 60 ml/min 10/29/17 05:57 BUN/Creatinine Ratio 23 % 10/29/17 05:57 Glucose 110 mg/dL (75-100) H 10/29/17 05:57 Hemoglobin A1c 5.2 % (4-6) 10/28/17 17:33 Lactic Acid 0.60 mmol/L (0.7-2.0) L 10/28/17 14:42 Calcium 8.6 mg/dL (8.4-10.2) 10/29/17 05:57 Total Bilirubin 1.00 mg/dL (0.1-1.2) 10/29/17 05:57 AST 20 units/L (5-40) 10/29/17 05:57 ALT 47 units/L (7-56) 10/29/17 05:57 Alkaline Phosphatase 61 units/L (35-129) 10/29/17 05:57 Total Protein 6.6 g/dL (6.3-8.2) 10/29/17 05:57 Albumin 3.9 g/dL (3.9-5) 10/29/17 05:57 Albumin/Globulin Ratio 1.4 % 10/29/17 05:57 Lipase 14 units/L (13-60) 10/28/17 11:50 Urine Color [place] (Yellow) 10/28/17 10:10 Urine Turbidity Clear (Clear) 10/28/17 10:10 Urine pH 7.0 (5.0-7.0) 10/28/17 10:10 Ur Specific [place] 1.020 (1.003-1.030) 10/28/17 10:10 Urine Protein 30 mg/dl mg/dL (Negative) 10/28/17 10:10 Urine Glucose (UA) Neg mg/dL (Negative) 10/28/17 10:10 Urine Ketones Neg mg/dL (Negative) 10/28/17 10:10 Urine Blood Neg (Negative) 10/28/17 10:10 Urine Nitrite Neg (Negative) 10/28/17 10:10 Urine Bilirubin Neg (Negative) 10/28/17 10:10 Urine Urobilinogen 4.0 mg/dL (<2.0) 10/28/17 10:10 Ur Leukocyte Esterase Neg (Negative) 10/28/17 10:10 Urine WBC (Auto) < 1.0 /HPF (0.0-6.0) 10/28/17 10:10 Urine RBC (Auto) 1.0 /HPF (0.0-6.0) 10/28/17 10:10
[2017-10-29 18:41] LABS: Bilirubin,Urine NEG (Negative); Blood,Urine MOD (Negative); Color,Urine Yellow (Yellow)
[2017-10-29] MEDS: DIFLUCAN 200 MG/100 ML BAG IV SCH (20:34)
[2017-10-30] MEDS: ZOFRAN IV PRN ×2 (01:05→19:43)
[2017-10-30] MEDS: DILAUDID IV PRN ×7 (01:08→22:39)
[2017-10-30] MEDS: MORPHINE IV PRN ×3 (03:13→19:35)
[2017-10-30] MEDS: REGLAN IV PRN (03:40)
[2017-10-30] MEDS: NACL 0.9% 1000 ML 1,000 ML IV SCH ×2 (04:17→13:02)
[2017-10-30] MEDS: ZOSYN/NS 4.5GM/100ML 4.5 GM/100 ML VIAL IV SCH (05:25)
[2017-10-30 05:38] LABS: Basophils % (Auto) 0.1 % (0.0-1.8); Eosinophils # (Auto) 0.1 K/mm3 (0.0-0.4); Eosinophils % (Auto) 1.1 % (0.0-4.3); Hematocrit 39.5 % (35.5-45.6); Hemoglobin 13.5 gm/dl (11.8-15.2); Lymphocytes # (Auto) 1.2 K/mm3 (1.2-5.4); Lymphocytes % (Auto) 9.7 % (13.4-35.0); Mean Corpuscular HGB Conc 34 % (32-34); Mean Corpuscular Hemoglobin 31 pg (28-32); Mean Corpuscular Volume 92 fl (84-94); Monocytes # (Auto) 0.9 K/mm3 (0.0-0.8); Monocytes % (Auto) 7.1 % (0.0-7.3); Platelet Count 266 K/mm3 (140-440); Red Blood Count 4.31 M/mm3 (3.65-5.03); Red Cell Distribution Width 14.3 % (13.2-15.2)
[2017-10-30 06:01] LABS: BUN/Creatinine Ratio 27; Blood Urea Nitrogen 19 mg/dL (9-20); Hemolysis Index 8
--- NOTE | 2017-10-30 09:08 | Progress Note ---
Assessment and Plan Assessment and plan: 57-year-old man presented to the emergency department with complaints of abdominal pain, initial around the periumbilical area and later generalized. Patient is septic and CT abdomen was done and showed diverticulitis with perforated sigmoid colon. General surgery was consulted, patient was taken to the OR on 10/28/2017 for emergent exploratory laparoscopy, lysis of adhesions and sigmoid colectomy with Bc's pouch and end colostomy. Perforation of sigmoid colon due to diverticulitis - Status post sigmoid colectomy with Bc's pouch and colostomy - IV fluid and IV antibiotics - Surgery isfollowing Sepsis secondary to perforated viscus - Fever, tachycardia, leukocytosis - Patient is on IV antibiotics - Infectious disease is following for adjustment of his IV antibiotics, NOW ON CEFEPIME, Flagyl AND FLUCONAZOLE -WBC IMPROVING. NO NEW FEVER SINCE Hypertension -On Clonidine patch for now Mid back pain Pain control for now DVT prophylaxis - On SCDs for now CODE STATUS is full Prognosis; Guarded Disposition - Continue inpatient care History Interval history: Resting comfortably, still with abdominal pain and lethargy. Hospitalist Physical - Physical exam Narrative exam: Not in cardiopulmonary distress. NG tube in place for suction. The patient is obese. Vital signs as documented. Head exam is unremarkable. No scleral icterus . Neck is without jugular venous distension, thyromegaly, or carotid bruits. Lungs are clear to auscultation. Cardiac exam reveals regular rate and Rhythm. First and second heart sounds normal. No murmurs, rubs or gallops. Abdominal exam reveals hypoactive bowel movement, tender. colostomy site clean and pink with viable tissues Extremities are nonedematous and both femoral and pedal pulses are normal. COMMUNICATION SKILLS INSTRUCTOR: Alert and oriented 3. No focal weakness. - Constitutional Vitals: Temp Pulse Resp BP Pulse Ox 98.8 F 74 14 152/81 97 10/30/17 08:00 10/30/17 08:00 10/30/17 08:00 10/30/17 08:00 10/30/17 08:00 General appearance: Present: mild distress (secondary to abdominal pain), well- nourished Results - Labs CBC & Chem 7: 10/30/17 05:01 10/30/17 05:01 Labs: Laboratory Last Values WBC 12.8 K/mm3 (4.5-11.0) H 10/30/17 05:01 RBC 4.31 M/mm3 (3.65-5.03) 10/30/17 05:01 Hgb 13.5 gm/dl (11.8-15.2) 10/30/17 05:01 Hct 39.5 % (35.5-45.6) 10/30/17 05:01 MCV 92 fl (84-94) 10/30/17 05:01 MCH 31 pg (28-32) 10/30/17 05:01 MCHC 34 % (32-34) 10/30/17 05:01 RDW 14.3 % (13.2-15.2) 10/30/17 05:01 Plt Count 266 K/mm3 (140-440) 10/30/17 05:01 Lymph % (Auto) 9.7 % (13.4-35.0) L 10/30/17 05:01 [place] % (Auto) 7.1 % (0.0-7.3) 10/30/17 05:01 Eos % (Auto) 1.1 % (0.0-4.3) 10/30/17 05:01 Baso % (Auto) 0.1 % (0.0-1.8) 10/30/17 05:01 Lymph # 1.2 K/mm3 (1.2-5.4) 10/30/17 05:01 [place] # 0.9 K/mm3 (0.0-0.8) H 10/30/17 05:01 Eos # 0.1 K/mm3 (0.0-0.4) 10/30/17 05:01 Baso # 0.0 K/mm3 (0.0-0.1) 10/30/17 05:01 Seg Neutrophils % 82.0 % (40.0-70.0) H 10/30/17 05:01 Seg Neutrophils # 10.5 K/mm3 (1.8-7.7) H 10/30/17 05:01 Sodium 138 mmol/L (137-145) 10/30/17 05:01 Potassium 4.4 mmol/L (3.6-5.0) 10/30/17 05:01 Chloride 98.8 mmol/L (98-107) 10/30/17 05:01 Carbon Dioxide 24 mmol/L (22-30) 10/30/17 05:01 Anion Gap 20 mmol/L 10/30/17 05:01 BUN 19 mg/dL (9-20) 10/30/17 05:01 Creatinine 0.7 mg/dL (0.8-1.5) L 10/30/17 05:01 Estimated GFR > 60 ml/min 10/30/17 05:01 BUN/Creatinine Ratio 27 % 10/30/17 05:01 Glucose 109 mg/dL (75-100) H 10/30/17 05:01 POC Glucose 108 (70-105) H 10/30/17 01:17 Hemoglobin A1c 5.2 % (4-6) 10/28/17 17:33 Lactic Acid 0.60 mmol/L (0.7-2.0) L 10/28/17 14:42 Calcium 9.0 mg/dL (8.4-10.2) 10/30/17 05:01 Total Bilirubin 1.00 mg/dL (0.1-1.2) 10/29/17 05:57 AST 20 units/L (5-40) 10/29/17 05:57 ALT 47 units/L (7-56) 10/29/17 05:57 Alkaline Phosphatase 61 units/L (35-129) 10/29/17 05:57 Total Protein 6.6 g/dL (6.3-8.2) 10/29/17 05:57 Albumin 3.9 g/dL (3.9-5) 10/29/17 05:57 Albumin/Globulin Ratio 1.4 % 10/29/17 05:57 Lipase 14 units/L (13-60) 10/28/17 11:50 Urine Color Yellow (Yellow) 10/29/17 18:08 Urine Turbidity Clear (Clear) 10/29/17 18:08 Urine pH 7.0 (5.0-7.0) 10/29/17 18:08 Ur Specific [place] 1.023 (1.003-1.030) 10/29/17 18:08 Urine Protein 30 mg/dl mg/dL (Negative) 10/29/17 18:08 Urine Glucose (UA) Neg mg/dL (Negative) 10/29/17 18:08 Urine Ketones 20 mg/dL (Negative) 10/29/17 18:08 Urine Blood Mod (Negative) 10/29/17 18:08 Urine Nitrite Neg (Negative) 10/29/17 18:08 Urine Bilirubin Neg (Negative) 10/29/17 18:08 Urine Urobilinogen 4.0 mg/dL (<2.0) 10/29/17 18:08 Ur Leukocyte Esterase Tr (Negative) 10/29/17 18:08 Urine WBC (Auto) 16.0 /HPF (0.0-6.0) H 10/29/17 18:08 Urine RBC (Auto) 85.0 /HPF (0.0-6.0) 10/29/17 18:08
[2017-10-30] MEDS: SODIUM CHLORIDE FLUSH SYRINGE 10 ML IV SCH ×2 (10:37→22:42)
[2017-10-30] MEDS: FLAGYL 500 MG/100 ML 500 MG/100 ML BAG IV SCH ×2 (13:05→21:59)
--- NOTE | 2017-10-30 13:13 | Progress Note ---
Assessment and Plan POD # 2 Pt feeling well. c/o incisional pain. Abd - dressings dry. ostomy pink lee d/c'ed surgically stable may transfer to floor from surgical perspective antibiotics as per ID Selected Entries 10/30/17 10/30/17 10/30/17 11:00 11:11 12:00 Temperature 99.3 F Pulse Rate 82 Respiratory 19 Rate Blood Pressure 153/83 Laboratory Tests 10/30/17 10/30/17 05:01 05:01 WBC 12.8 H Hgb 13.5 Hct 39.5 Sodium 138 Potassium 4.4 Chloride 98.8 Carbon Dioxide 24 BUN 19 Creatinine 0.7 L Objective Vital Signs - 12hr 10/30/17 10/30/17 10/30/17 01:20 01:31 01:41 Temperature Pulse Rate 76 78 79 Pulse Rate [ From Monitor] Respiratory 19 17 20 Rate Blood Pressure 156/78 156/78 156/78 O2 Sat by Pulse 94 96 97 Oximetry 10/30/17 10/30/17 10/30/17 01:51 02:00 02:11 Temperature Pulse Rate 79 78 76 Pulse Rate [ From Monitor] Respiratory 18 17 17 Rate Blood Pressure 156/78 131/78 131/78 O2 Sat by Pulse 96 96 96 Oximetry 10/30/17 10/30/17 10/30/17 02:21 02:31 02:41 Temperature Pulse Rate 76 80 75 Pulse Rate [ From Monitor] Respiratory 18 18 24 Rate Blood Pressure 131/78 131/78 131/78 O2 Sat by Pulse 96 97 96 Oximetry 10/30/17 10/30/17 10/30/17 02:51 03:00 03:11 Temperature Pulse Rate 76 75 82 Pulse Rate [ From Monitor] Respiratory 30 H 21 23 Rate Blood Pressure 131/78 131/78 147/83 O2 Sat by Pulse 97 97 97 Oximetry 10/30/17 10/30/17 10/30/17 03:13 03:21 03:31 Temperature Pulse Rate 75 74 Pulse Rate [ From Monitor] Respiratory 20 17 19 Rate Blood Pressure 147/83 147/83 O2 Sat by Pulse 96 96 Oximetry 10/30/17 10/30/17 10/30/17 03:41 03:51 04:00 Temperature 99.1 F Pulse Rate 77 79 86 Pulse Rate [ From Monitor] Respiratory 20 18 17 Rate Blood Pressure 147/83 147/83 150/85 O2 Sat by Pulse 97 97 98 Oximetry 10/30/17 10/30/17 10/30/17 04:11 04:14 04:21 Temperature Pulse Rate 78 78 Pulse Rate [ From Monitor] Respiratory 22 21 15 Rate Blood Pressure 150/85 150/85 O2 Sat by Pulse 98 96 Oximetry 10/30/17 10/30/17 10/30/17 04:31 04:41 04:51 Temperature Pulse Rate 77 78 78 Pulse Rate [ From Monitor] Respiratory 16 14 20 Rate Blood Pressure 150/85 150/85 150/85 O2 Sat by Pulse 96 96 96 Oximetry 10/30/17 10/30/17 10/30/17 05:00 05:11 05:21 Temperature Pulse Rate 83 75 76 Pulse Rate [ From Monitor] Respiratory 20 16 21 Rate Blood Pressure 137/66 137/66 137/66 O2 Sat by Pulse 97 96 97 Oximetry 10/30/17 10/30/17 10/30/17 05:31 05:41 05:51 Temperature Pulse Rate 72 73 71 Pulse Rate [ From Monitor] Respiratory 18 19 16 Rate Blood Pressure 137/66 137/66 137/66 O2 Sat by Pulse 97 96 96 Oximetry 10/30/17 10/30/17 10/30/17 06:00 06:11 06:13 Temperature Pulse Rate 80 79 Pulse Rate [ From Monitor] Respiratory 22 21 20 Rate Blood Pressure 158/85 158/85 O2 Sat by Pulse 97 96 Oximetry 10/30/17 10/30/17 10/30/17 06:21 06:30 06:41 Temperature Pulse Rate 76 79 75 Pulse Rate [ From Monitor] Respiratory 19 21 17 Rate Blood Pressure 158/85 158/85 158/85 O2 Sat by Pulse 97 96 97 Oximetry 10/30/17 10/30/17 10/30/17 06:51 07:00 07:11 Temperature Pulse Rate 77 78 84 Pulse Rate [ From Monitor] Respiratory 21 17 16 Rate Blood Pressure 158/85 153/85 153/85 O2 Sat by Pulse 97 95 98 Oximetry 10/30/17 10/30/17 10/30/17 07:21 07:31 07:41 Temperature Pulse Rate 74 75 78 Pulse Rate [ From Monitor] Respiratory 14 14 14 Rate Blood Pressure 153/85 153/85 153/85 O2 Sat by Pulse 96 96 96 Oximetry 10/30/17 10/30/17 10/30/17 07:51 08:00 08:11 Temperature 98.8 F Pulse Rate 81 72 74 Pulse Rate [ 74 From Monitor] Respiratory 22 17 14 Rate Blood Pressure 153/85 152/81 152/81 O2 Sat by Pulse 97 97 97 Oximetry 10/30/17 10/30/17 10/30/17 08:21 08:31 08:41 Temperature Pulse Rate 72 77 76 Pulse Rate [ From Monitor] Respiratory 14 14 16 Rate Blood Pressure 152/81 152/81 152/81 O2 Sat by Pulse 97 97 97 Oximetry 10/30/17 10/30/17 10/30/17 08:51 09:00 09:11 Temperature Pulse Rate 76 77 72 Pulse Rate [ From Monitor] Respiratory 19 19 14 Rate Blood Pressure 152/81 168/91 168/91 O2 Sat by Pulse 98 99 97 Oximetry 10/30/17 10/30/17 10/30/17 09:21 09:31 09:41 Temperature Pulse Rate 81 79 73 Pulse Rate [ From Monitor] Respiratory 22 19 19 Rate Blood Pressure 168/91 168/91 168/91 O2 Sat by Pulse 99 95 97 Oximetry 10/30/17 10/30/17 10/30/17 09:51 10:00 10:11 Temperature Pulse Rate 72 75 81 Pulse Rate [ From Monitor] Respiratory 17 20 20 Rate Blood Pressure 168/91 150/76 150/76 O2 Sat by Pulse 97 97 96 Oximetry 10/30/17 10/30/17 10/30/17 10:21 10:31 10:41 Temperature Pulse Rate 73 84 77 Pulse Rate [ From Monitor] Respiratory 16 21 18 Rate Blood Pressure 150/76 150/76 150/76 O2 Sat by Pulse 98 98 97 Oximetry 10/30/17 10/30/17 10/30/17 10:51 11:00 11:11 Temperature Pulse Rate 74 74 82 Pulse Rate [ From Monitor] Respiratory 13 19 24 Rate Blood Pressure 150/76 153/83 153/83 O2 Sat by Pulse 97 98 96 Oximetry 10/30/17 12:00 Temperature 99.3 F Pulse Rate Pulse Rate [ From Monitor] Respiratory Rate Blood Pressure O2 Sat by Pulse Oximetry - Labs 10/30/17 05:01 10/30/17 05:01 Diabetes panel 10/30/17 Range/Units 05:01 Sodium 138 (137-145) mmol/L Potassium 4.4 (3.6-5.0) mmol/L Chloride 98.8 (98-107) mmol/L Carbon Dioxide 24 (22-30) mmol/L BUN 19 (9-20) mg/dL Creatinine 0.7 L (0.8-1.5) mg/dL Glucose 109 H (75-100) mg/dL Calcium 9.0 (8.4-10.2) mg/dL Calcium panel 10/30/17 Range/Units 05:01 Calcium 9.0 (8.4-10.2) mg/dL Pituitary panel 10/30/17 Range/Units 05:01 Sodium 138 (137-145) mmol/L Potassium 4.4 (3.6-5.0) mmol/L Chloride 98.8 (98-107) mmol/L Carbon Dioxide 24 (22-30) mmol/L BUN 19 (9-20) mg/dL Creatinine 0.7 L (0.8-1.5) mg/dL Glucose 109 H (75-100) mg/dL Calcium 9.0 (8.4-10.2) mg/dL Adrenal panel 10/30/17 Range/Units 05:01 Sodium 138 (137-145) mmol/L Potassium 4.4 (3.6-5.0) mmol/L Chloride 98.8 (98-107) mmol/L Carbon Dioxide 24 (22-30) mmol/L BUN 19 (9-20) mg/dL Creatinine 0.7 L (0.8-1.5) mg/dL Glucose 109 H (75-100) mg/dL Calcium 9.0 (8.4-10.2) mg/dL
--- NOTE | 2017-10-30 13:41 | Progress Note ---
Assessment and Plan Assessment: 1) Sepsis: better, leukocytosis improving. Etiology most likely diverticular abscess. -Blood cultures 10/28 ngtd 2) Sigmoid perforation with diverticular abscess: -CT of the abdomen findings are compatible with acute diverticulitis with associated perforation. 1.5 centimeter fluid and air collection adjacent to the sigmoid colon. Scattered foci of free intraperitoneal air. -S/P OR on 10/28/2017 for emergent exploratory laparoscopy, lysis of adhesions and sigmoid colectomy with Bc's pouch and end colostomy. -OR cultures GNR 3) Hypertension 4) Chronic back pain Plan: -follow-up blood cultures -follow-up peritoneal culture which is growing GNRs -continue cefepime/flagyl -continue fluconazole -once he is able to toelrate po will change to PO abx Discussed with Dr Najera Thank you for your consultation, will follow up with you. Jovita Dewitt MD Infectious Diseases Specialist [facility] ([facility]) M [phone] O [phone] Subjective Date of service: 10/30/17 Principal diagnosis: vicous perf Interval history: Feels better, requesting for pain meds, no fever Microbiology: Blood cultures: 10/28 ngtd OR cultures: 10/28 GNR Urine cultures: 10/28 neg Current Antimicrobials: cefepime/flagyl/fluconazole Previous Antimicrobials: zosyn Objective - Exam Narrative Exam: General appearance: Alert in NAD, conversant Eyes: anicteric sclerae, moist conjunctivae; no lid-lag; PERRLA HENT: Atraumatic; oropharynx clear +NGT Neck: Trachea midline; supple, no thyromegaly or lymphadenopathy Lungs: CTA, with normal respiratory effort and no intercostal retractions CV: RRR Abdomen: Soft, diffuse tenderness, midline surgical wound with surgical dressings, colostomy bag. Extremities: No peripheral edema or extremity lymphadenopathy Skin: Normal temperature, turgor and texture; no rash, ulcers or subcutaneous nodules Psych: Appropriate affect, alert and oriented to person, place and time. Neuro: alert and oriented x 3. Moving all extermities Lines: lee - Constitutional Vitals: Vital Signs Temp Pulse Resp BP Pulse Ox 99.3 F 82 24 153/83 96 10/30/17 12:00 10/30/17 11:11 10/30/17 11:11 10/30/17 11:11 10/30/17 11:11 Temperature -Last 24 Hours Temperature 99.3 F Temperature 98.8 F Temperature 98.8 F Temperature 99.1 F Temperature 98.8 F Temperature 98.7 F Temperature 98.0 F - Labs CBC & Chem 7: 10/30/17 05:01 10/30/17 05:01 Labs: Abnormal lab results 10/29/17 10/30/17 10/30/17 Range/Units 18:08 01:17 05:01 WBC 12.8 H (4.5-11.0) K/mm3 Lymph % (Auto) 9.7 L (13.4-35.0) % [place] # 0.9 H (0.0-0.8) K/mm3 Seg Neutrophils % 82.0 H (40.0-70.0) % Seg Neutrophils # 10.5 H (1.8-7.7) K/mm3 Creatinine (0.8-1.5) mg/dL Glucose (75-100) mg/dL POC Glucose 108 H (70-105) Urine WBC (Auto) 16.0 H (0.0-6.0) /HPF 10/30/17 Range/Units 05:01 WBC (4.5-11.0) K/mm3 Lymph % (Auto) (13.4-35.0) % [place] # (0.0-0.8) K/mm3 Seg Neutrophils % (40.0-70.0) % Seg Neutrophils # (1.8-7.7) K/mm3 Creatinine 0.7 L (0.8-1.5) mg/dL Glucose 109 H (75-100) mg/dL POC Glucose (70-105) Urine WBC (Auto) (0.0-6.0) /HPF
[2017-10-30] MEDS: MAXIPIME/NS 2 GM/100 ML 2 GM/100 ML BAG IV SCH ×2 (15:52→22:58)
[2017-10-30] MEDS: DIFLUCAN 200 MG/100 ML BAG IV SCH (20:16)
[2017-10-31] MEDS: MORPHINE IV PRN ×2 (00:20→04:20)
[2017-10-31] MEDS: NACL 0.9% 1000 ML 1,000 ML IV SCH ×2 (02:08→12:56)
[2017-10-31] MEDS: DILAUDID IV PRN ×6 (02:08→22:59)
[2017-10-31 05:00] LABS: Hemoglobin 12.2 gm/dl (11.8-15.2); Mean Corpuscular HGB Conc 35 % (32-34); Mean Corpuscular Hemoglobin 32 pg (28-32); Mean Corpuscular Volume 92 fl (84-94); Platelet Count 253 K/mm3 (140-440); Red Blood Count 3.81 M/mm3 (3.65-5.03); Red Cell Distribution Width 14.1 % (13.2-15.2)
[2017-10-31] MEDS: MAXIPIME/NS 2 GM/100 ML 2 GM/100 ML BAG IV SCH ×3 (05:10→21:53)
[2017-10-31] MEDS: FLAGYL 500 MG/100 ML 500 MG/100 ML BAG IV SCH ×3 (06:05→21:57)
--- NOTE | 2017-10-31 08:09 | Progress Note ---
Assessment and Plan POD #3 Pt in good spirits. no compl Abd soft, non tender. ostomy pink minimal flatus in bag. neg BS surgically stable may transfer to surgical floor. OOB and ambulate down halls as jarvis Selected Entries 10/31/17 10/31/17 10/31/17 04:00 06:30 06:40 Temperature 98 F Pulse Rate 65 Respiratory 16 Rate Blood Pressure 143/76 Laboratory Tests 10/29/17 10/30/17 10/31/17 05:57 05:01 04:14 WBC 15.1 H 12.8 H 10.5 Hgb 12.2 Hct 35.0 L Objective Vital Signs - 12hr 10/30/17 10/30/17 10/30/17 20:10 20:20 20:30 Temperature Pulse Rate 76 74 72 Respiratory 18 21 17 Rate Blood Pressure 147/75 147/75 148/82 O2 Sat by Pulse 98 97 97 Oximetry 10/30/17 10/30/17 10/30/17 20:40 20:50 21:00 Temperature Pulse Rate 73 74 73 Respiratory 16 17 17 Rate Blood Pressure 148/82 148/82 149/79 O2 Sat by Pulse 98 97 97 Oximetry 10/30/17 10/30/17 10/30/17 21:10 21:20 21:30 Temperature Pulse Rate 75 71 81 Respiratory 17 17 17 Rate Blood Pressure 149/79 149/79 149/79 O2 Sat by Pulse 97 98 99 Oximetry 10/30/17 10/30/17 10/30/17 21:40 21:50 22:00 Temperature Pulse Rate 75 84 75 Respiratory 18 13 17 Rate Blood Pressure 149/79 149/79 161/86 O2 Sat by Pulse 98 79 L 97 Oximetry 10/30/17 10/30/17 10/30/17 22:10 22:20 22:30 Temperature Pulse Rate 68 77 68 Respiratory 15 20 14 Rate Blood Pressure 152/85 152/85 152/85 O2 Sat by Pulse 97 98 97 Oximetry 10/30/17 10/30/17 10/30/17 22:39 22:40 22:50 Temperature Pulse Rate 76 68 Respiratory 18 17 14 Rate Blood Pressure 152/85 152/85 O2 Sat by Pulse 98 97 Oximetry 10/30/17 10/30/17 10/30/17 23:00 23:10 23:20 Temperature Pulse Rate 76 77 66 Respiratory 20 19 15 Rate Blood Pressure 167/87 152/79 152/79 O2 Sat by Pulse 98 98 98 Oximetry 10/30/17 10/30/17 10/30/17 23:30 23:40 23:50 Temperature Pulse Rate 67 66 69 Respiratory 15 15 14 Rate Blood Pressure 152/79 152/79 152/79 O2 Sat by Pulse 97 98 97 Oximetry 10/31/17 10/31/17 10/31/17 00:00 00:06 00:10 Temperature 98.2 F Pulse Rate 71 68 68 Respiratory 15 13 15 Rate Blood Pressure 147/78 152/79 152/79 O2 Sat by Pulse 98 98 98 Oximetry 10/31/17 10/31/17 10/31/17 00:20 00:30 00:40 Temperature Pulse Rate 67 68 65 Respiratory 14 13 13 Rate Blood Pressure 152/79 152/79 152/79 O2 Sat by Pulse 99 98 98 Oximetry 10/31/17 10/31/17 10/31/17 00:50 01:00 01:10 Temperature Pulse Rate 64 65 65 Respiratory 12 15 13 Rate Blood Pressure 152/79 131/75 147/78 O2 Sat by Pulse 98 98 99 Oximetry 10/31/17 10/31/17 10/31/17 01:20 01:30 01:40 Temperature Pulse Rate 66 70 66 Respiratory 14 17 14 Rate Blood Pressure 147/78 147/78 131/75 O2 Sat by Pulse 98 99 99 Oximetry 10/31/17 10/31/17 10/31/17 01:50 02:00 02:08 Temperature Pulse Rate 66 64 Respiratory 13 14 15 Rate Blood Pressure 131/75 142/76 O2 Sat by Pulse 99 99 Oximetry 10/31/17 10/31/17 10/31/17 02:10 02:20 02:30 Temperature Pulse Rate 67 69 67 Respiratory 14 13 13 Rate Blood Pressure 142/76 142/76 142/76 O2 Sat by Pulse 98 97 98 Oximetry 10/31/17 10/31/17 10/31/17 02:40 02:50 03:00 Temperature Pulse Rate 73 71 68 Respiratory 15 13 16 Rate Blood Pressure 142/76 142/76 142/76 O2 Sat by Pulse 98 98 98 Oximetry 10/31/17 10/31/17 10/31/17 03:10 03:20 03:30 Temperature Pulse Rate 66 68 67 Respiratory 13 13 19 Rate Blood Pressure 129/69 129/69 129/69 O2 Sat by Pulse 98 97 97 Oximetry 10/31/17 10/31/17 10/31/17 03:40 03:50 04:00 Temperature 98 F Pulse Rate 71 68 74 Respiratory 14 13 15 Rate Blood Pressure 129/69 129/69 153/83 O2 Sat by Pulse 98 98 98 Oximetry 10/31/17 10/31/17 10/31/17 04:10 04:20 04:30 Temperature Pulse Rate 74 70 70 Respiratory 17 16 13 Rate Blood Pressure 153/83 153/83 153/83 O2 Sat by Pulse 97 97 97 Oximetry 10/31/17 10/31/17 10/31/17 04:40 04:50 05:00 Temperature Pulse Rate 65 70 66 Respiratory 13 14 13 Rate Blood Pressure 153/83 153/83 139/71 O2 Sat by Pulse 97 98 98 Oximetry 10/31/17 10/31/17 10/31/17 05:10 05:20 05:27 Temperature Pulse Rate 68 75 Respiratory 13 15 15 Rate Blood Pressure 139/71 139/71 O2 Sat by Pulse 98 97 Oximetry 10/31/17 10/31/17 10/31/17 05:30 05:40 05:50 Temperature Pulse Rate 71 79 78 Respiratory 14 14 17 Rate Blood Pressure 139/71 139/71 139/71 O2 Sat by Pulse 96 97 96 Oximetry 10/31/17 10/31/17 10/31/17 06:00 06:10 06:20 Temperature Pulse Rate 69 71 65 Respiratory 16 13 13 Rate Blood Pressure 143/76 143/76 143/76 O2 Sat by Pulse 94 94 97 Oximetry 10/31/17 10/31/17 06:30 06:40 Temperature Pulse Rate 68 65 Respiratory 16 12 Rate Blood Pressure 143/76 143/76 O2 Sat by Pulse 98 98 Oximetry - Labs 10/31/17 04:14 10/30/17 05:01
[2017-10-31] MEDS: SODIUM CHLORIDE FLUSH SYRINGE 10 ML IV SCH ×2 (09:09→21:59)
[2017-10-31] MEDS: ZOFRAN IV PRN ×2 (09:19→19:12)
[2017-10-31] MEDS: REGLAN IV PRN ×2 (14:02→23:00)
--- NOTE | 2017-10-31 16:01 | Progress Note ---
Assessment and Plan Assessment: 1) Sepsis: better, leukocytosis resolved. Etiology most likely diverticular abscess. -Blood cultures 10/28 ngtd 2) Sigmoid perforation with diverticular abscess: -CT of the abdomen findings are compatible with acute diverticulitis with associated perforation. 1.5 centimeter fluid and air collection adjacent to the sigmoid colon. Scattered foci of free intraperitoneal air. -S/P OR on 10/28/2017 for emergent exploratory laparoscopy, lysis of adhesions and sigmoid colectomy with Bc's pouch and end colostomy. -OR cultures GNR 3) Hypertension 4) Chronic back pain Plan: -follow-up peritoneal culture which is growing GNRs -continue cefepime/flagyl -continue fluconazole -once he is able to toelrate po will change to PO abx I am rounding on 11/02 Thank you for your consultation, will follow up with you. Jovita Dewitt MD Infectious Diseases Specialist [facility] ([facility]) M [phone] O [phone] Subjective Date of service: 10/31/17 Principal diagnosis: vicous perf Interval history: Feels better, requesting for pain meds, no fever Microbiology: Blood cultures: 10/28 ngtd OR cultures: 10/28 GNR Urine cultures: 10/28 neg Current Antimicrobials: cefepime/flagyl/fluconazole Previous Antimicrobials: zosyn Objective - Exam Narrative Exam: General appearance: Alert in NAD, conversant Eyes: anicteric sclerae, moist conjunctivae; no lid-lag; PERRLA HENT: Atraumatic; oropharynx clear +NGT Neck: Trachea midline; supple, no thyromegaly or lymphadenopathy Lungs: CTA, with normal respiratory effort and no intercostal retractions CV: RRR Abdomen: Soft, diffuse tenderness, midline surgical wound with surgical dressings, colostomy bag. Extremities: No peripheral edema or extremity lymphadenopathy Skin: Normal temperature, turgor and texture; no rash, ulcers or subcutaneous nodules Psych: Appropriate affect, alert and oriented to person, place and time. Neuro: alert and oriented x 3. Moving all extermities Lines: lee - Constitutional Vitals: Vital Signs Temp Pulse Resp BP Pulse Ox 98.8 F 75 13 142/78 98 10/31/17 12:00 10/31/17 12:30 10/31/17 12:30 10/31/17 12:30 10/31/17 12:30 Temperature -Last 24 Hours Temperature 98.8 F Temperature 98.8 F Temperature 98 F Temperature 98.2 F Temperature 98.2 F - Labs CBC & Chem 7: 10/31/17 04:14 10/30/17 05:01 Labs: Abnormal lab results 10/31/17 Range/Units 04:14 Hct 35.0 L (35.5-45.6) % MCHC 35 H (32-34) %
--- NOTE | 2017-10-31 18:23 | Progress Note ---
Assessment and Plan Assessment and plan: 57-year-old man presented to the emergency department with complaints of abdominal pain, initial around the periumbilical area and later generalized. Patient is septic and CT abdomen was done and showed diverticulitis with perforated sigmoid colon. General surgery was consulted, patient was taken to the OR on 10/28/2017 for emergent exploratory laparoscopy, lysis of adhesions and sigmoid colectomy with Bc's pouch and end colostomy. Perforation of sigmoid colon due to diverticulitis - Status post sigmoid colectomy with Bc's pouch and colostomy - IV fluid and IV antibiotics - Surgery is following Sepsis secondary to perforated viscus - Fever, tachycardia, leukocytosis - Patient is on IV antibiotics - Infectious disease is following for adjustment of his IV antibiotics, NOW ON CEFEPIME, Flagyl AND FLUCONAZOLE -WBC IMPROVING. NO NEW FEVER SINCE - Monitor cultures - Start diet when ok with surgery. Hypertension -On Clonidine patch for now Mid back pain Pain control for now DVT prophylaxis - On SCDs for now CODE STATUS is full Prognosis; Guarded Disposition - Continue inpatient care History Interval history: Resting comfortably, reports some improvement. Not flatus Hospitalist Physical - Physical exam Narrative exam: Not in cardiopulmonary distress. NG tube in place for suction. The patient is obese. Vital signs as documented. Head exam is unremarkable. No scleral icterus . Neck is without jugular venous distension, thyromegaly, or carotid bruits. Lungs are clear to auscultation. Cardiac exam reveals regular rate and Rhythm. First and second heart sounds normal. No murmurs, rubs or gallops. Abdominal exam reveals hypoactive bowel movement, tender. colostomy site clean and pink with viable tissues Extremities are nonedematous and both femoral and pedal pulses are normal. 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 No focal weakness. - Constitutional Vitals: Temp Pulse Resp BP Pulse Ox 98.8 F 70 95 H 147/82 98 10/31/17 16:00 10/31/17 16:10/31/17 16:10/31/17 16:10/31/17 12:30 General appearance: Present: mild distress (secondary to abdominal pain), well- nourished Results - Labs CBC & Chem 7: 10/31/17 04:14 10/30/17 05:01 Labs: Laboratory Last Values WBC 10.5 K/mm3 (4.5-11.0) 10/31/17 04:14 RBC 3.81 M/mm3 (3.65-5.03) 10/31/17 04:14 Hgb 12.2 gm/dl (11.8-15.2) 10/31/17 04:14 Hct 35.0 % (35.5-45.6) L 10/31/17 04:14 MCV 92 fl (84-94) 10/31/17 04:14 MCH 32 pg (28-32) 10/31/17 04:14 MCHC 35 % (32-34) H 10/31/17 04:14 RDW 14.1 % (13.2-15.2) 10/31/17 04:14 Plt Count 253 K/mm3 (140-440) 10/31/17 04:14 Lymph % (Auto) 9.7 % (13.4-35.0) L 10/30/17 05:01 [place] % (Auto) 7.1 % (0.0-7.3) 10/30/17 05:01 Eos % (Auto) 1.1 % (0.0-4.3) 10/30/17 05:01 Baso % (Auto) 0.1 % (0.0-1.8) 10/30/17 05:01 Lymph # 1.2 K/mm3 (1.2-5.4) 10/30/17 05:01 [place] # 0.9 K/mm3 (0.0-0.8) H 10/30/17 05:01 Eos # 0.1 K/mm3 (0.0-0.4) 10/30/17 05:01 Baso # 0.0 K/mm3 (0.0-0.1) 10/30/17 05:01 Seg Neutrophils % 82.0 % (40.0-70.0) H 10/30/17 05:01 Seg Neutrophils # 10.5 K/mm3 (1.8-7.7) H 10/30/17 05:01 Sodium 138 mmol/L (137-145) 10/30/17 05:01 Potassium 4.4 mmol/L (3.6-5.0) 10/30/17 05:01 Chloride 98.8 mmol/L (98-107) 10/30/17 05:01 Carbon Dioxide 24 mmol/L (22-30) 10/30/17 05:01 Anion Gap 20 mmol/L 10/30/17 05:01 BUN 19 mg/dL (9-20) 10/30/17 05:01 Creatinine 0.7 mg/dL (0.8-1.5) L 10/30/17 05:01 Estimated GFR > 60 ml/min 10/30/17 05:01 BUN/Creatinine Ratio 27 % 10/30/17 05:01 Glucose 109 mg/dL (75-100) H 10/30/17 05:01 POC Glucose 108 (70-105) H 10/30/17 01:17 Hemoglobin A1c 5.2 % (4-6) 10/28/17 17:33 Lactic Acid 0.60 mmol/L (0.7-2.0) L 10/28/17 14:42 Calcium 9.0 mg/dL (8.4-10.2) 10/30/17 05:01 Total Bilirubin 1.00 mg/dL (0.1-1.2) 10/29/17 05:57 AST 20 units/L (5-40) 10/29/17 05:57 ALT 47 units/L (7-56) 10/29/17 05:57 Alkaline Phosphatase 61 units/L (35-129) 10/29/17 05:57 Total Protein 6.6 g/dL (6.3-8.2) 10/29/17 05:57 Albumin 3.9 g/dL (3.9-5) 10/29/17 05:57 Albumin/Globulin Ratio 1.4 % 10/29/17 05:57 Lipase 14 units/L (13-60) 10/28/17 11:50 Urine Color Yellow (Yellow) 10/29/17 18:08 Urine Turbidity Clear (Clear) 10/29/17 18:08 Urine pH 7.0 (5.0-7.0) 10/29/17 18:08 Ur Specific [place] 1.023 (1.003-1.030) 10/29/17 18:08 Urine Protein 30 mg/dl mg/dL (Negative) 10/29/17 18:08 Urine Glucose (UA) Neg mg/dL (Negative) 10/29/17 18:08 Urine Ketones 20 mg/dL (Negative) 10/29/17 18:08 Urine Blood Mod (Negative) 10/29/17 18:08 Urine Nitrite Neg (Negative) 10/29/17 18:08 Urine Bilirubin Neg (Negative) 10/29/17 18:08 Urine Urobilinogen 4.0 mg/dL (<2.0) 10/29/17 18:08 Ur Leukocyte Esterase Tr (Negative) 10/29/17 18:08 Urine WBC (Auto) 16.0 /HPF (0.0-6.0) H 10/29/17 18:08 Urine RBC (Auto) 85.0 /HPF (0.0-6.0) 10/29/17 18:08
[2017-10-31] MEDS: DIFLUCAN 200 MG/100 ML BAG IV SCH (20:31)
[2017-11-01] MEDS: DILAUDID IV PRN ×5 (03:14→23:51)
[2017-11-01] MEDS: ZOFRAN IV PRN ×2 (03:21→16:10)
[2017-11-01] MEDS: NACL 0.9% 1000 ML 1,000 ML IV SCH ×2 (03:21→15:54)
[2017-11-01] MEDS: FLAGYL 500 MG/100 ML 500 MG/100 ML BAG IV SCH (05:00)
[2017-11-01] MEDS: MAXIPIME/NS 2 GM/100 ML 2 GM/100 ML BAG IV SCH (05:05)
[2017-11-01] MEDS: SODIUM CHLORIDE FLUSH SYRINGE 10 ML IV SCH ×2 (09:58→21:33)
[2017-11-01] MEDS: REGLAN IV PRN ×2 (10:14→20:16)
--- NOTE | 2017-11-01 12:39 | Progress Note ---
Assessment and Plan POD # 4 Pt transferred to floor. no compl. wants to eat Abd soft, non tender. wd clean & dry. hypoactive BS. ostomy pink. minimal flatus stable ice chips ambulation Selected Entries 11/01/17 11/01/17 11/01/17 04:37 08:32 10:06 Temperature 98.6 F Pulse Rate 71 Respiratory 20 Rate Blood Pressure 153/73 Laboratory Tests 10/31/17 04:14 WBC 10.5 Hgb 12.2 Hct 35.0 L Objective Vital Signs - 12hr 11/01/17 11/01/17 11/01/17 03:14 03:44 04:37 Temperature 98.6 F Pulse Rate 72 Respiratory 17 17 18 Rate Blood Pressure 140/77 O2 Sat by Pulse 93 Oximetry 11/01/17 11/01/17 08:32 10:06 Temperature Pulse Rate 71 Respiratory 20 Rate Blood Pressure 153/73 O2 Sat by Pulse 96 Oximetry - Labs 10/31/17 04:14 10/30/17 05:01
[2017-11-01] MEDS: ROCEPHIN/NS 2 GM/100 ML 2 GM/100 ML BAG IV SCH (16:02)
--- NOTE | 2017-11-01 18:57 | Progress Note ---
Assessment and Plan Assessment and plan: 57-year-old man presented to the emergency department with complaints of abdominal pain, initial around the periumbilical area and later generalized. Patient is septic and CT abdomen was done and showed diverticulitis with perforated sigmoid colon. General surgery was consulted, patient was taken to the OR on 10/28/2017 for emergent exploratory laparoscopy, lysis of adhesions and sigmoid colectomy with Bc's pouch and end colostomy. Perforation of sigmoid colon due to diverticulitis - Status post sigmoid colectomy with Bc's pouch and colostomy - IV fluid and IV antibiotics - Surgery is following Sepsis secondary to perforated viscus - Fever, tachycardia, leukocytosis - Patient is on IV antibiotics - Infectious disease is following for adjustment of his IV antibiotics, NOW ON CEFEPIME, Flagyl AND FLUCONAZOLE -WBC IMPROVING. NO NEW FEVER SINCE - Monitor cultures - Start diet when ok with surgery. - ice chips Hypertension -On Clonidine patch for now Mid back pain Pain control for now DVT prophylaxis - On SCDs for now CODE STATUS is full Prognosis; Guarded Disposition - Continue inpatient care History Interval history: Resting comfortably, reports some improvement. Hungry Hospitalist Physical - Physical exam Narrative exam: Not in cardiopulmonary distress. NG tube in place for suction. The patient is obese. Vital signs as documented. Head exam is unremarkable. No scleral icterus . Neck is without jugular venous distension, thyromegaly, or carotid bruits. Lungs are clear to auscultation. Cardiac exam reveals regular rate and Rhythm. First and second heart sounds normal. No murmurs, rubs or gallops. Abdominal exam reveals hypoactive bowel movement, tender. colostomy site clean and pink with viable tissues Extremities are nonedematous and both femoral and pedal pulses are normal. 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 No focal weakness. - Constitutional Vitals: Temp Pulse Resp BP Pulse Ox 98.6 F 71 18 153/73 96 11/01/17 04:37 11/01/17 08:32 11/01/17 16:02 11/01/17 08:32 11/01/17 08:32 General appearance: Present: mild distress (secondary to abdominal pain), well- nourished Results - Labs CBC & Chem 7: 10/31/17 04:14 10/30/17 05:01 Labs: Laboratory Last Values WBC 10.5 K/mm3 (4.5-11.0) 10/31/17 04:14 RBC 3.81 M/mm3 (3.65-5.03) 10/31/17 04:14 Hgb 12.2 gm/dl (11.8-15.2) 10/31/17 04:14 Hct 35.0 % (35.5-45.6) L 10/31/17 04:14 MCV 92 fl (84-94) 10/31/17 04:14 MCH 32 pg (28-32) 10/31/17 04:14 MCHC 35 % (32-34) H 10/31/17 04:14 RDW 14.1 % (13.2-15.2) 10/31/17 04:14 Plt Count 253 K/mm3 (140-440) 10/31/17 04:14 Lymph % (Auto) 9.7 % (13.4-35.0) L 10/30/17 05:01 [place] % (Auto) 7.1 % (0.0-7.3) 10/30/17 05:01 Eos % (Auto) 1.1 % (0.0-4.3) 10/30/17 05:01 Baso % (Auto) 0.1 % (0.0-1.8) 10/30/17 05:01 Lymph # 1.2 K/mm3 (1.2-5.4) 10/30/17 05:01 [place] # 0.9 K/mm3 (0.0-0.8) H 10/30/17 05:01 Eos # 0.1 K/mm3 (0.0-0.4) 10/30/17 05:01 Baso # 0.0 K/mm3 (0.0-0.1) 10/30/17 05:01 Seg Neutrophils % 82.0 % (40.0-70.0) H 10/30/17 05:01 Seg Neutrophils # 10.5 K/mm3 (1.8-7.7) H 10/30/17 05:01 Sodium 138 mmol/L (137-145) 10/30/17 05:01 Potassium 4.4 mmol/L (3.6-5.0) 10/30/17 05:01 Chloride 98.8 mmol/L (98-107) 10/30/17 05:01 Carbon Dioxide 24 mmol/L (22-30) 10/30/17 05:01 Anion Gap 20 mmol/L 10/30/17 05:01 BUN 19 mg/dL (9-20) 10/30/17 05:01 Creatinine 0.7 mg/dL (0.8-1.5) L 10/30/17 05:01 Estimated GFR > 60 ml/min 10/30/17 05:01 BUN/Creatinine Ratio 27 % 10/30/17 05:01 Glucose 109 mg/dL (75-100) H 10/30/17 05:01 POC Glucose 108 (70-105) H 10/30/17 01:17 Hemoglobin A1c 5.2 % (4-6) 10/28/17 17:33 Lactic Acid 0.60 mmol/L (0.7-2.0) L 10/28/17 14:42 Calcium 9.0 mg/dL (8.4-10.2) 10/30/17 05:01 Total Bilirubin 1.00 mg/dL (0.1-1.2) 10/29/17 05:57 AST 20 units/L (5-40) 10/29/17 05:57 ALT 47 units/L (7-56) 10/29/17 05:57 Alkaline Phosphatase 61 units/L (35-129) 10/29/17 05:57 Total Protein 6.6 g/dL (6.3-8.2) 10/29/17 05:57 Albumin 3.9 g/dL (3.9-5) 10/29/17 05:57 Albumin/Globulin Ratio 1.4 % 10/29/17 05:57 Lipase 14 units/L (13-60) 10/28/17 11:50 Urine Color Yellow (Yellow) 10/29/17 18:08 Urine Turbidity Clear (Clear) 10/29/17 18:08 Urine pH 7.0 (5.0-7.0) 10/29/17 18:08 Ur Specific [place] 1.023 (1.003-1.030) 10/29/17 18:08 Urine Protein 30 mg/dl mg/dL (Negative) 10/29/17 18:08 Urine Glucose (UA) Neg mg/dL (Negative) 10/29/17 18:08 Urine Ketones 20 mg/dL (Negative) 10/29/17 18:08 Urine Blood Mod (Negative) 10/29/17 18:08 Urine Nitrite Neg (Negative) 10/29/17 18:08 Urine Bilirubin Neg (Negative) 10/29/17 18:08 Urine Urobilinogen 4.0 mg/dL (<2.0) 10/29/17 18:08 Ur Leukocyte Esterase Tr (Negative) 10/29/17 18:08 Urine WBC (Auto) 16.0 /HPF (0.0-6.0) H 10/29/17 18:08 Urine RBC (Auto) 85.0 /HPF (0.0-6.0) 10/29/17 18:08
[2017-11-02] MEDS: NACL 0.9% 1000 ML 1,000 ML IV SCH ×2 (02:19→17:58)
[2017-11-02 04:46] LABS: Hematocrit 35.8 % (35.5-45.6); Hemoglobin 12.8 gm/dl (11.8-15.2); Mean Corpuscular HGB Conc 36 % (32-34); Mean Corpuscular Hemoglobin 33 pg (28-32); Mean Corpuscular Volume 91 fl (84-94); Platelet Count 307 K/mm3 (140-440); Red Blood Count 3.92 M/mm3 (3.65-5.03)
[2017-11-02 05:01] LABS: BUN/Creatinine Ratio 34; Blood Urea Nitrogen 24 mg/dL (9-20); Calcium 9.4 mg/dL (8.4-10.2); Hemolysis Index 1
[2017-11-02] MEDS: DILAUDID IV PRN ×3 (05:12→22:00)
[2017-11-02] MEDS: ZOFRAN IV PRN (05:13)
--- NOTE | 2017-11-02 09:42 | Progress Note ---
Assessment and Plan POD # 5 Pt had large BM yesterday. pulled ng tube. ambulating down halls at present. no compl. Abd soft, non tender surgically stable attempt non carbonated cl liq diet Selected Entries 11/02/17 08:03 Temperature 98.3 F Pulse Rate 68 Blood Pressure 151/77 Laboratory Tests 11/02/17 04:14 WBC 10.4 Hgb 12.8 Hct 35.8 Objective Vital Signs - 12hr 11/01/17 11/01/17 11/02/17 23:30 23:51 00:10 Temperature 98.7 F Pulse Rate 69 Respiratory 20 18 20 Rate Blood Pressure 151/80 O2 Sat by Pulse 93 Oximetry 11/02/17 11/02/17 11/02/17 00:21 04:59 05:12 Temperature 98.1 F Pulse Rate 75 Respiratory 18 20 18 Rate Blood Pressure 158/80 O2 Sat by Pulse 94 Oximetry 11/02/17 08:03 Temperature 98.3 F Pulse Rate 68 Respiratory 18 Rate Blood Pressure 151/77 O2 Sat by Pulse 91 Oximetry - Labs 11/02/17 04:14 11/02/17 04:14 Diabetes panel 11/02/17 Range/Units 04:14 Sodium 144 (137-145) mmol/L Potassium 3.7 (3.6-5.0) mmol/L Chloride 102.8 (98-107) mmol/L Carbon Dioxide 27 (22-30) mmol/L BUN 24 H (9-20) mg/dL Creatinine 0.7 L (0.8-1.5) mg/dL Glucose 118 H (75-100) mg/dL Calcium 9.4 (8.4-10.2) mg/dL Calcium panel 11/02/17 Range/Units 04:14 Calcium 9.4 (8.4-10.2) mg/dL Pituitary panel 11/02/17 Range/Units 04:14 Sodium 144 (137-145) mmol/L Potassium 3.7 (3.6-5.0) mmol/L Chloride 102.8 (98-107) mmol/L Carbon Dioxide 27 (22-30) mmol/L BUN 24 H (9-20) mg/dL Creatinine 0.7 L (0.8-1.5) mg/dL Glucose 118 H (75-100) mg/dL Calcium 9.4 (8.4-10.2) mg/dL Adrenal panel 11/02/17 Range/Units 04:14 Sodium 144 (137-145) mmol/L Potassium 3.7 (3.6-5.0) mmol/L Chloride 102.8 (98-107) mmol/L Carbon Dioxide 27 (22-30) mmol/L BUN 24 H (9-20) mg/dL Creatinine 0.7 L (0.8-1.5) mg/dL Glucose 118 H (75-100) mg/dL Calcium 9.4 (8.4-10.2) mg/dL
[2017-11-02] MEDS: SODIUM CHLORIDE FLUSH SYRINGE 10 ML IV SCH (10:01)
--- NOTE | 2017-11-02 11:21 | Progress Note ---
Assessment and Plan Assessment: 1) Sepsis: resolved. . Etiology diverticular abscess. -Blood cultures 10/28 ngtd 2) Sigmoid perforation with diverticular abscess: -CT of the abdomen findings are compatible with acute diverticulitis with associated perforation. 1.5 centimeter fluid and air collection adjacent to the sigmoid colon. Scattered foci of free intraperitoneal air. -S/P OR on 10/28/2017 for emergent exploratory laparoscopy, lysis of adhesions and sigmoid colectomy with Bc's pouch and end colostomy. -OR cultures - E. Coli- 10/29 3) Hypertension 4) Chronic back pain Plan -continue ceftriaxone, D2 -once able to tolerate PO, change to Levaquin 750 mg ,once a day and Flagyl 500 mg three times a day for a total of ten days ending 11/06/17. Dr. Mejia will be taking call this weekend. [facility] M: [phone] O:[phone] Subjective Date of service: 11/02/17 Principal diagnosis: vicous perf Interval history: Patient was sitting in the bed watching television. He stated that he was doing better today. Microbiology: Blood cultures: 10/28 ngtd OR cultures: 10/28 GNR Urine cultures: 10/28 neg Current Antimicrobials: cefepime /flagyl /fluconazole Previous Antimicrobials: zosyn Objective - Exam Narrative Exam: General appearance: Alert in NAD, conversant Eyes: anicteric sclerae, moist conjunctivae; no lid-lag; PERRLA HENT: Atraumatic; oropharynx clear +NGT Neck: Trachea midline; supple, no thyromegaly or lymphadenopathy Lungs: CTA, with normal respiratory effort and no intercostal retractions CV: RRR Abdomen: Soft, diffuse tenderness, midline surgical wound with surgical dressings, colostomy bag. Extremities: No peripheral edema or extremity lymphadenopathy Skin: Normal temperature, turgor and texture; no rash, ulcers or subcutaneous nodules Psych: Appropriate affect, alert and oriented to person, place and time. Neuro: alert and oriented x 3. Moving all extermities Lines: - Constitutional Vitals: Vital Signs Temp Pulse Resp BP Pulse Ox 98.3 F 68 18 151/77 91 11/02/17 08:03 11/02/17 08:03 11/02/17 08:03 11/02/17 08:03 11/02/17 08:03 Temperature -Last 24 Hours Temperature 98.3 F Temperature 98.1 F Temperature 98.7 F Temperature 98.5 F Temperature 99.1 F Temperature 98.4 F - Labs CBC & Chem 7: 11/02/17 04:14 11/02/17 04:14 Labs: Abnormal lab results 11/02/17 11/02/17 Range/Units 04:14 04:14 MCH 33 H (28-32) pg MCHC 36 H (32-34) % BUN 24 H (9-20) mg/dL Creatinine 0.7 L (0.8-1.5) mg/dL Glucose 118 H (75-100) mg/dL
[2017-11-02] MEDS: ROCEPHIN/NS 2 GM/100 ML 2 GM/100 ML BAG IV SCH (17:57)
--- NOTE | 2017-11-02 18:01 | Progress Note ---
Assessment and Plan Assessment and plan: 57-year-old man presented to the emergency department with complaints of abdominal pain, initial around the periumbilical area and later generalized. Patient is septic and CT abdomen was done and showed diverticulitis with perforated sigmoid colon. General surgery was consulted, patient was taken to the OR on 10/28/2017 for emergent exploratory laparoscopy, lysis of adhesions and sigmoid colectomy with Bc's pouch and end colostomy. Perforation of sigmoid colon due to diverticulitis - Status post sigmoid colectomy with Bc's pouch and colostomy - IV fluid and IV antibiotics - Surgery is following Sepsis secondary to perforated viscus - Fever, tachycardia, leukocytosis - Patient is on IV antibiotics - Infectious disease is following for adjustment of his IV antibiotics, NOW ON CEFEPIME, Flagyl AND FLUCONAZOLE -WBC IMPROVING. NO NEW FEVER SINCE - Monitor cultures - Start diet when ok with surgery. - ice chips Hypertension -On Clonidine patch for now Mid back pain Pain control for now DVT prophylaxis - On SCDs for now CODE STATUS is full Prognosis; Guarded Disposition - Continue inpatient care History Interval history: Resting comfortably, ngt off today, tolerating some PO still with pain in the abdomen 5/10 generalized and intermittent Hospitalist Physical - Physical exam Narrative exam: Not in cardiopulmonary distress. NG tube in place for suction. The patient is obese. Vital signs as documented. Head exam is unremarkable. No scleral icterus . Neck is without jugular venous distension, thyromegaly, or carotid bruits. Lungs are clear to auscultation. Cardiac exam reveals regular rate and Rhythm. First and second heart sounds normal. No murmurs, rubs or gallops. Abdominal exam reveals hypoactive bowel movement, tender. colostomy site clean and pink with viable tissues Extremities are nonedematous and both femoral and pedal pulses are normal. 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 No focal weakness. - Constitutional Vitals: Temp Pulse Resp BP Pulse Ox 98.0 F 63 18 144/80 98 11/02/17 15:55 11/02/17 15:55 11/02/17 15:55 11/02/17 15:55 11/02/17 15:55 General appearance: Present: mild distress (secondary to abdominal pain), well- nourished Results - Labs CBC & Chem 7: 11/02/17 04:14 11/02/17 04:14 Labs: Laboratory Last Values WBC 10.4 K/mm3 (4.5-11.0) 11/02/17 04:14 RBC 3.92 M/mm3 (3.65-5.03) 11/02/17 04:14 Hgb 12.8 gm/dl (11.8-15.2) 11/02/17 04:14 Hct 35.8 % (35.5-45.6) 11/02/17 04:14 MCV 91 fl (84-94) 11/02/17 04:14 MCH 33 pg (28-32) H 11/02/17 04:14 MCHC 36 % (32-34) H 11/02/17 04:14 RDW 14.0 % (13.2-15.2) 11/02/17 04:14 Plt Count 307 K/mm3 (140-440) 11/02/17 04:14 Lymph % (Auto) 9.7 % (13.4-35.0) L 10/30/17 05:01 [place] % (Auto) 7.1 % (0.0-7.3) 10/30/17 05:01 Eos % (Auto) 1.1 % (0.0-4.3) 10/30/17 05:01 Baso % (Auto) 0.1 % (0.0-1.8) 10/30/17 05:01 Lymph # 1.2 K/mm3 (1.2-5.4) 10/30/17 05:01 [place] # 0.9 K/mm3 (0.0-0.8) H 10/30/17 05:01 Eos # 0.1 K/mm3 (0.0-0.4) 10/30/17 05:01 Baso # 0.0 K/mm3 (0.0-0.1) 10/30/17 05:01 Seg Neutrophils % 82.0 % (40.0-70.0) H 10/30/17 05:01 Seg Neutrophils # 10.5 K/mm3 (1.8-7.7) H 10/30/17 05:01 Sodium 144 mmol/L (137-145) 11/02/17 04:14 Potassium 3.7 mmol/L (3.6-5.0) 11/02/17 04:14 Chloride 102.8 mmol/L (98-107) 11/02/17 04:14 Carbon Dioxide 27 mmol/L (22-30) 11/02/17 04:14 Anion Gap 18 mmol/L 11/02/17 04:14 BUN 24 mg/dL (9-20) H 11/02/17 04:14 Creatinine 0.7 mg/dL (0.8-1.5) L 11/02/17 04:14 Estimated GFR > 60 ml/min 11/02/17 04:14 BUN/Creatinine Ratio 34 % 11/02/17 04:14 Glucose 118 mg/dL (75-100) H 11/02/17 04:14 POC Glucose 108 (70-105) H 10/30/17 01:17 Hemoglobin A1c 5.2 % (4-6) 10/28/17 17:33 Lactic Acid 0.60 mmol/L (0.7-2.0) L 10/28/17 14:42 Calcium 9.4 mg/dL (8.4-10.2) 11/02/17 04:14 Total Bilirubin 1.00 mg/dL (0.1-1.2) 10/29/17 05:57 AST 20 units/L (5-40) 10/29/17 05:57 ALT 47 units/L (7-56) 10/29/17 05:57 Alkaline Phosphatase 61 units/L (35-129) 10/29/17 05:57 Total Protein 6.6 g/dL (6.3-8.2) 10/29/17 05:57 Albumin 3.9 g/dL (3.9-5) 10/29/17 05:57 Albumin/Globulin Ratio 1.4 % 10/29/17 05:57 Lipase 14 units/L (13-60) 10/28/17 11:50 Urine Color Yellow (Yellow) 10/29/17 18:08 Urine Turbidity Clear (Clear) 10/29/17 18:08 Urine pH 7.0 (5.0-7.0) 10/29/17 18:08 Ur Specific [place] 1.023 (1.003-1.030) 10/29/17 18:08 Urine Protein 30 mg/dl mg/dL (Negative) 10/29/17 18:08 Urine Glucose (UA) Neg mg/dL (Negative) 10/29/17 18:08 Urine Ketones 20 mg/dL (Negative) 10/29/17 18:08 Urine Blood Mod (Negative) 10/29/17 18:08 Urine Nitrite Neg (Negative) 10/29/17 18:08 Urine Bilirubin Neg (Negative) 10/29/17 18:08 Urine Urobilinogen 4.0 mg/dL (<2.0) 10/29/17 18:08 Ur Leukocyte Esterase Tr (Negative) 10/29/17 18:08 Urine WBC (Auto) 16.0 /HPF (0.0-6.0) H 10/29/17 18:08 Urine RBC (Auto) 85.0 /HPF (0.0-6.0) 10/29/17 18:08
[2017-11-02] MEDS: REGLAN IV PRN (22:04)
[2017-11-03] MEDS: NACL 0.9% 1000 ML 1,000 ML IV SCH (01:55)
[2017-11-03] MEDS: SODIUM CHLORIDE FLUSH SYRINGE 10 ML IV SCH ×3 (01:56→22:28)
[2017-11-03] MEDS: DILAUDID IV PRN (03:04)
[2017-11-03] MEDS: ZOFRAN IV PRN (03:05)
[2017-11-03] MEDS ORDERED: LISINOPRIL PO SCH (10:00)
[2017-11-03] MEDS ORDERED: HYDROCHLOROTHIAZIDE PO SCH (10:00)
--- NOTE | 2017-11-03 11:22 | Progress Note ---
Assessment and Plan POD # 6 Pt feeling well without compl. jarvis cl liq diet Abd - non tender stable full liq diet home health discharge arrangements Selected Entries 11/03/17 07:28 Temperature 98.1 F Pulse Rate 57 L Respiratory 18 Rate Blood Pressure 149/76 [Left] Objective Vital Signs - 12hr 11/02/17 11/03/17 11/03/17 23:49 04:13 07:28 Temperature 98.4 F 98.2 F 98.1 F Pulse Rate 57 L 62 57 L Respiratory 17 18 18 Rate Blood Pressure 143/86 165/86 Blood Pressure 149/76 [Left] O2 Sat by Pulse 95 95 99 Oximetry - Labs 11/02/17 04:14 11/02/17 04:14
--- NOTE | 2017-11-03 11:59 | Progress Note ---
Assessment and Plan Assessment and plan: 57-year-old man presented to the emergency department with complaints of abdominal pain, initial around the periumbilical area and later generalized. Patient is septic and CT abdomen was done and showed diverticulitis with perforated sigmoid colon. General surgery was consulted, patient was taken to the OR on 10/28/2017 for emergent exploratory laparoscopy, lysis of adhesions and sigmoid colectomy with Bc's pouch and end colostomy. Perforation of sigmoid colon due to diverticulitis - Status post sigmoid colectomy with Bc's pouch and colostomy - IV fluid and IV antibiotics - Surgery is following Sepsis secondary to perforated viscus - Fever, tachycardia, leukocytosis - Patient is on IV antibiotics - Infectious disease is following for adjustment of his IV antibiotics, NOW ON CEFEPIME, Flagyl AND FLUCONAZOLE -WBC IMPROVING. NO NEW FEVER SINCE - Monitor cultures - advance diet today . - ice chips Hypertension -On Clonidine patch for now Mid back pain Pain control for now DVT prophylaxis - On SCDs for now CODE STATUS is full Prognosis; Guarded Disposition - Continue inpatient care History Interval history: Resting comfortably, ngt off today, AMBULATING, less pain today Hospitalist Physical - Physical exam Narrative exam: Not in cardiopulmonary distress. NG tube in place for suction. The patient is obese. Vital signs as documented. Head exam is unremarkable. No scleral icterus . Neck is without jugular venous distension, thyromegaly, or carotid bruits. Lungs are clear to auscultation. Cardiac exam reveals regular rate and Rhythm. First and second heart sounds normal. No murmurs, rubs or gallops. Abdominal exam reveals hypoactive bowel movement, tender. colostomy site clean and pink with viable tissues Extremities are nonedematous and both femoral and pedal pulses are normal. 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 No focal weakness. - Constitutional Vitals: Temp Pulse Resp BP Pulse Ox 98.1 F 57 L 18 149/76 99 11/03/17 07:28 11/03/17 07:28 11/03/17 07:28 11/03/17 07:28 11/03/17 07:28 General appearance: Present: mild distress (secondary to abdominal pain), well- nourished Results - Labs CBC & Chem 7: 11/02/17 04:14 11/02/17 04:14 Labs: Laboratory Last Values WBC 10.4 K/mm3 (4.5-11.0) 11/02/17 04:14 RBC 3.92 M/mm3 (3.65-5.03) 11/02/17 04:14 Hgb 12.8 gm/dl (11.8-15.2) 11/02/17 04:14 Hct 35.8 % (35.5-45.6) 11/02/17 04:14 MCV 91 fl (84-94) 11/02/17 04:14 MCH 33 pg (28-32) H 11/02/17 04:14 MCHC 36 % (32-34) H 11/02/17 04:14 RDW 14.0 % (13.2-15.2) 11/02/17 04:14 Plt Count 307 K/mm3 (140-440) 11/02/17 04:14 Lymph % (Auto) 9.7 % (13.4-35.0) L 10/30/17 05:01 [place] % (Auto) 7.1 % (0.0-7.3) 10/30/17 05:01 Eos % (Auto) 1.1 % (0.0-4.3) 10/30/17 05:01 Baso % (Auto) 0.1 % (0.0-1.8) 10/30/17 05:01 Lymph # 1.2 K/mm3 (1.2-5.4) 10/30/17 05:01 [place] # 0.9 K/mm3 (0.0-0.8) H 10/30/17 05:01 Eos # 0.1 K/mm3 (0.0-0.4) 10/30/17 05:01 Baso # 0.0 K/mm3 (0.0-0.1) 10/30/17 05:01 Seg Neutrophils % 82.0 % (40.0-70.0) H 10/30/17 05:01 Seg Neutrophils # 10.5 K/mm3 (1.8-7.7) H 10/30/17 05:01 Sodium 144 mmol/L (137-145) 11/02/17 04:14 Potassium 3.7 mmol/L (3.6-5.0) 11/02/17 04:14 Chloride 102.8 mmol/L (98-107) 11/02/17 04:14 Carbon Dioxide 27 mmol/L (22-30) 11/02/17 04:14 Anion Gap 18 mmol/L 11/02/17 04:14 BUN 24 mg/dL (9-20) H 11/02/17 04:14 Creatinine 0.7 mg/dL (0.8-1.5) L 11/02/17 04:14 Estimated GFR > 60 ml/min 11/02/17 04:14 BUN/Creatinine Ratio 34 % 11/02/17 04:14 Glucose 118 mg/dL (75-100) H 11/02/17 04:14 POC Glucose 108 (70-105) H 10/30/17 01:17 Hemoglobin A1c 5.2 % (4-6) 10/28/17 17:33 Lactic Acid 0.60 mmol/L (0.7-2.0) L 10/28/17 14:42 Calcium 9.4 mg/dL (8.4-10.2) 11/02/17 04:14 Total Bilirubin 1.00 mg/dL (0.1-1.2) 10/29/17 05:57 AST 20 units/L (5-40) 10/29/17 05:57 ALT 47 units/L (7-56) 10/29/17 05:57 Alkaline Phosphatase 61 units/L (35-129) 10/29/17 05:57 Total Protein 6.6 g/dL (6.3-8.2) 10/29/17 05:57 Albumin 3.9 g/dL (3.9-5) 10/29/17 05:57 Albumin/Globulin Ratio 1.4 % 10/29/17 05:57 Lipase 14 units/L (13-60) 10/28/17 11:50 Urine Color Yellow (Yellow) 10/29/17 18:08 Urine Turbidity Clear (Clear) 10/29/17 18:08 Urine pH 7.0 (5.0-7.0) 10/29/17 18:08 Ur Specific [place] 1.023 (1.003-1.030) 10/29/17 18:08 Urine Protein 30 mg/dl mg/dL (Negative) 10/29/17 18:08 Urine Glucose (UA) Neg mg/dL (Negative) 10/29/17 18:08 Urine Ketones 20 mg/dL (Negative) 10/29/17 18:08 Urine Blood Mod (Negative) 10/29/17 18:08 Urine Nitrite Neg (Negative) 10/29/17 18:08 Urine Bilirubin Neg (Negative) 10/29/17 18:08 Urine Urobilinogen 4.0 mg/dL (<2.0) 10/29/17 18:08 Ur Leukocyte Esterase Tr (Negative) 10/29/17 18:08 Urine WBC (Auto) 16.0 /HPF (0.0-6.0) H 10/29/17 18:08 Urine RBC (Auto) 85.0 /HPF (0.0-6.0) 10/29/17 18:08
[2017-11-03] MEDS: HCTZ PO SCH (12:21)
[2017-11-03] MEDS: ZESTRIL PO SCH (12:21)
[2017-11-03] MEDS: ROCEPHIN/NS 2 GM/100 ML 2 GM/100 ML BAG IV SCH (12:22)
[2017-11-04] MEDS ORDERED: BENADRYL PO PRN (00:37)
[2017-11-04] MEDS: NACL 0.9% 1000 ML 1,000 ML IV SCH (01:56)
[2017-11-04] MEDS: DILAUDID IV PRN (04:36)
[2017-11-04] MEDS: HCTZ PO SCH (09:13)
[2017-11-04] MEDS: ZESTRIL PO SCH (09:13)
[2017-11-04] MEDS: SODIUM CHLORIDE FLUSH SYRINGE 10 ML IV SCH ×2 (09:15→21:31)
[2017-11-04] MEDS: ROCEPHIN/NS 2 GM/100 ML 2 GM/100 ML BAG IV SCH (11:47)
[2017-11-04] MEDS: NORCO 5/325 PO PRN ×3 (11:51→21:33)
--- NOTE | 2017-11-04 11:57 | Progress Note ---
Assessment and Plan POD # 7 Pt feeling well. jarvis full liq diet Abd soft stable d/c claus advance to solid high fiber diet may d/c from surgical perspective in am if diet jarvis needs home health arrangements for local care rto Fri Selected Entries 11/04/17 11/04/17 11/04/17 04:21 08:03 09:13 Temperature 97.6 F Pulse Rate 67 Respiratory 17 Rate Blood Pressure 157/90 Objective Vital Signs - 12hr 11/04/17 11/04/17 11/04/17 00:06 04:21 08:03 Temperature 98.5 F 98.2 F 97.6 F Pulse Rate 67 61 67 Respiratory 18 17 20 Rate Blood Pressure 155/90 148/87 157/90 O2 Sat by Pulse 96 97 95 Oximetry 11/04/17 09:13 Temperature Pulse Rate Respiratory Rate Blood Pressure 157/90 O2 Sat by Pulse Oximetry - Labs 11/02/17 04:14 11/02/17 04:14
--- NOTE | 2017-11-04 15:20 | Progress Note ---
Assessment and Plan Assessment and plan: 57-year-old man presented to the emergency department with complaints of abdominal pain, initial around the periumbilical area and later generalized. Patient is septic and CT abdomen was done and showed diverticulitis with perforated sigmoid colon. General surgery was consulted, patient was taken to the OR on 10/28/2017 for emergent exploratory laparoscopy, lysis of adhesions and sigmoid colectomy with Bc's pouch and end colostomy. Perforation of sigmoid colon due to diverticulitis - Status post sigmoid colectomy with Bc's pouch and colostomy - IV fluid and IV antibiotics - Surgery is following - advance to solid high fiber diet PER SURGERY - Wound care and home health on discharge - claus d/anastasia by surgery Sepsis secondary to perforated viscus - Fever, tachycardia, leukocytosis - POD 7 - Patient is on IV antibiotics - Infectious disease is following for adjustment of his IV antibiotics, NOW ON CEFEPIME, Flagyl AND FLUCONAZOLE -WBC IMPROVING. NO NEW FEVER SINCE - Monitor cultures - advance diet today . - ice chips Hypertension -On Clonidine patch for now - RESUME HOME MEDS Mid back pain Pain control for now FOLLOW WITH PCP AT THE [place] DVT prophylaxis - On SCDs for now CODE STATUS is full Prognosis; Guarded Disposition - Continue inpatient care - Discharge in am IF TOLERATING DIET History Interval history: Resting comfortably, ngt off today, wants to advance diet Hospitalist Physical - Physical exam Narrative exam: Not in cardiopulmonary distress. NG tube in place for suction. The patient is obese. Vital signs as documented. Head exam is unremarkable. No scleral icterus . Neck is without jugular venous distension, thyromegaly, or carotid bruits. Lungs are clear to auscultation. Cardiac exam reveals regular rate and Rhythm. First and second heart sounds normal. No murmurs, rubs or gallops. Abdominal exam reveals hypoactive bowel movement, tender. colostomy site clean and pink with viable tissues Extremities are nonedematous and both femoral and pedal pulses are normal. 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 No focal weakness. - Constitutional Vitals: Temp Pulse Resp BP Pulse Ox 97.6 F 67 20 157/90 95 11/04/17 08:03 11/04/17 08:03 11/04/17 08:03 11/04/17 09:13 11/04/17 08:03 General appearance: Present: mild distress (secondary to abdominal pain), well- nourished Results - Labs CBC & Chem 7: 11/02/17 04:14 11/02/17 04:14 Labs: Laboratory Last Values WBC 10.4 K/mm3 (4.5-11.0) 11/02/17 04:14 RBC 3.92 M/mm3 (3.65-5.03) 11/02/17 04:14 Hgb 12.8 gm/dl (11.8-15.2) 11/02/17 04:14 Hct 35.8 % (35.5-45.6) 11/02/17 04:14 MCV 91 fl (84-94) 11/02/17 04:14 MCH 33 pg (28-32) H 11/02/17 04:14 MCHC 36 % (32-34) H 11/02/17 04:14 RDW 14.0 % (13.2-15.2) 11/02/17 04:14 Plt Count 307 K/mm3 (140-440) 11/02/17 04:14 Lymph % (Auto) 9.7 % (13.4-35.0) L 10/30/17 05:01 [place] % (Auto) 7.1 % (0.0-7.3) 10/30/17 05:01 Eos % (Auto) 1.1 % (0.0-4.3) 10/30/17 05:01 Baso % (Auto) 0.1 % (0.0-1.8) 10/30/17 05:01 Lymph # 1.2 K/mm3 (1.2-5.4) 10/30/17 05:01 [place] # 0.9 K/mm3 (0.0-0.8) H 10/30/17 05:01 Eos # 0.1 K/mm3 (0.0-0.4) 10/30/17 05:01 Baso # 0.0 K/mm3 (0.0-0.1) 10/30/17 05:01 Seg Neutrophils % 82.0 % (40.0-70.0) H 10/30/17 05:01 Seg Neutrophils # 10.5 K/mm3 (1.8-7.7) H 10/30/17 05:01 Sodium 144 mmol/L (137-145) 11/02/17 04:14 Potassium 3.7 mmol/L (3.6-5.0) 11/02/17 04:14 Chloride 102.8 mmol/L (98-107) 11/02/17 04:14 Carbon Dioxide 27 mmol/L (22-30) 11/02/17 04:14 Anion Gap 18 mmol/L 11/02/17 04:14 BUN 24 mg/dL (9-20) H 11/02/17 04:14 Creatinine 0.7 mg/dL (0.8-1.5) L 11/02/17 04:14 Estimated GFR > 60 ml/min 11/02/17 04:14 BUN/Creatinine Ratio 34 % 11/02/17 04:14 Glucose 118 mg/dL (75-100) H 11/02/17 04:14 POC Glucose 108 (70-105) H 10/30/17 01:17 Hemoglobin A1c 5.2 % (4-6) 10/28/17 17:33 Lactic Acid 0.60 mmol/L (0.7-2.0) L 10/28/17 14:42 Calcium 9.4 mg/dL (8.4-10.2) 11/02/17 04:14 Total Bilirubin 1.00 mg/dL (0.1-1.2) 10/29/17 05:57 AST 20 units/L (5-40) 10/29/17 05:57 ALT 47 units/L (7-56) 10/29/17 05:57 Alkaline Phosphatase 61 units/L (35-129) 10/29/17 05:57 Total Protein 6.6 g/dL (6.3-8.2) 10/29/17 05:57 Albumin 3.9 g/dL (3.9-5) 10/29/17 05:57 Albumin/Globulin Ratio 1.4 % 10/29/17 05:57 Lipase 14 units/L (13-60) 10/28/17 11:50 Urine Color Yellow (Yellow) 10/29/17 18:08 Urine Turbidity Clear (Clear) 10/29/17 18:08 Urine pH 7.0 (5.0-7.0) 10/29/17 18:08 Ur Specific [place] 1.023 (1.003-1.030) 09/17/18 18:08 Urine Protein 30 mg/dl mg/dL (Negative) 10/29/17 18:08 Urine Glucose (UA) Neg mg/dL (Negative) 10/29/17 18:08 Urine Ketones 20 mg/dL (Negative) 10/29/17 18:08 Urine Blood Mod (Negative) 10/29/17 18:08 Urine Nitrite Neg (Negative) 10/29/17 18:08 Urine Bilirubin Neg (Negative) 10/29/17 18:08 Urine Urobilinogen 4.0 mg/dL (<2.0) 10/29/17 18:08 Ur Leukocyte Esterase Tr (Negative) 10/29/17 18:08 Urine WBC (Auto) 16.0 /HPF (0.0-6.0) H 10/29/17 18:08 Urine RBC (Auto) 85.0 /HPF (0.0-6.0) 10/29/17 18:08
[2017-11-04] MEDS: CATAPRES-TTS PATCH TD SCH (21:26)
[2017-11-05] MEDS: NORCO 5/325 PO PRN (04:05)
[2017-11-05] MEDS: REGLAN IV PRN (04:06)
--- NOTE | 2017-11-05 10:13 | Progress Note ---
Assessment and Plan Pt feeling well. dressed. eager to go home. Abd soft. wd clean surgically stable will need home health for local wd care antibiotics as per ID rto this Fri Objective Vital Signs - 12hr 11/04/17 11/05/17 23:54 07:09 Temperature 98.6 F 98.4 F Pulse Rate 95 H 62 Respiratory 18 18 Rate Blood Pressure 149/70 125/79 O2 Sat by Pulse 97 96 Oximetry - Labs 11/02/17 04:14 11/02/17 04:14
--- NOTE | 2017-11-05 10:39 | Discharge Summary ---
Providers - Providers Date of Admission: 10/28/17 15:16 Attending physician: ALCIRA MONTEIRO MD 10/28/17 14:17 Consult to Physician [CONS] Stat Comment: Consulting Provider: HUMBLE WARREN Physician Instructions: Reason For Exam: perforated diverticulitis 10/28/17 19:24 Consult to Physician [CONS] Routine Comment: Consulting Provider: FREDI MUIR Physician Instructions: Reason For Exam: sigmoid perf 11/01/17 12:40 Consult to Wound/ET Nurse [CONS] Routine Reason For Exam: wound eval Physical Therapy Evaluation and Treat [CONS] Routine Comment: Reason For Exam: ambulate down halls Primary care physician: CONTROLLED AREA CHECKER Hospitalization Reason for admission: abdominal pain Condition: Stable Hospital course: 57-year-old man presented to the emergency department with complaints of abdominal pain, initial around the periumbilical area and later generalized. Patient is septic and CT abdomen was done and showed diverticulitis with perforated sigmoid colon. General surgery was consulted, patient was taken to the OR on 10/28/2017 for emergent exploratory laparoscopy, lysis of adhesions and sigmoid colectomy with Bc's pouch and end colostomy. Patient tolerated procedure clearly was continued on antibiotics and discharged on Levaquin per infectious disease and is recommended to follow-up with surgery outpatient. Surgeon was provided on wound care and also care for the colostomy. Perforation of sigmoid colon due to diverticulitis Sepsis secondary to perforated viscus Hypertension Chronic Mid back pain Disposition: [id number]/[place]-06 HOME UNDER HOME HLTH Time spent for discharge: 35 mins Core Measure Documentation - Palliative Care Palliative Care/ Comfort Measures: Not Applicable - Core Measures Any of the following diagnoses?: none - VTE Discharge Requirements Deep Vein Thrombosis/Pulmonary Embolism Present on Admission: No Exam - Physical Exam Narrative exam: Not in cardiopulmonary distress. NG tube in place for suction. The patient is obese. Vital signs as documented. Head exam is unremarkable. No scleral icterus . Neck is without jugular venous distension, thyromegaly, or carotid bruits. Lungs are clear to auscultation. Cardiac exam reveals regular rate and Rhythm. First and second heart sounds normal. No murmurs, rubs or gallops. Abdominal exam reveals hypoactive bowel movement, tender. colostomy site clean and pink with viable tissues Extremities are nonedematous and both femoral and pedal pulses are normal. 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 No focal weakness. - Constitutional Vitals: Temp Pulse Resp BP Pulse Ox 98.4 F 62 18 125/79 96 11/05/17 07:09 11/05/17 07:09 11/05/17 07:09 11/05/17 07:09 11/05/17 07:09 Plan Activity: advance as tolerated, fall precautions Diet: low salt Special Instructions: record daily weights, record daily BP diary, home health RN (wound management) Follow up with: PRIMARY MD HORACIO [Primary Care Provider] - 3-5 Days HUMBLE WARREN MD [Staff Physician] - 7 Days Prescriptions: diphenhydrAMINE [Benadryl CAP] 25 mg PO QHS PRN #14 capsule PRN Reason: Insomnia HYDROcodone/APAP 7.5-325 [[place] 7.5-325 mg TAB] 1 each PO Q6HR PRN #15 tablet PRN Reason: Pain levoFLOXacin [Levaquin] 750 mg PO QDAY #4 tablet levoFLOXacin [Levaquin] 750 mg PO QDAY 10 Days #10 tablet metroNIDAZOLE [Flagyl] 500 mg PO Q8HR 10 Days #30 tablet
[2017-11-05 11:30] VITALS: BP 136/68
--- NOTE | 2017-11-05 11:30 | Progress Note ---
Assessment and Plan Assessment: 1) Sepsis: resolved. . Etiology diverticular abscess. -Blood cultures 10/28 ngtd 2) Sigmoid perforation with diverticular abscess: -CT of the abdomen findings are compatible with acute diverticulitis with associated perforation. 1.5 centimeter fluid and air collection adjacent to the sigmoid colon. Scattered foci of free intraperitoneal air. -S/P OR on 10/28/2017 for emergent exploratory laparoscopy, lysis of adhesions and sigmoid colectomy with Bc's pouch and end colostomy. -OR cultures - E. Coli- 10/29 3) Hypertension 4) Chronic back pain Plan -Patient being discharged, Levaquin 750 mg ,once a day and Flagyl 500 mg three times a day for a total of ten days ending 11/14/17, prescriptions on chart. [facility] M: [phone] O:[phone] Subjective Date of service: 11/05/17 Principal diagnosis: vicous perf Interval history: Patient standing at the nurses station today. Stated that he was being discharged. Patient stated that he was doing well. Microbiology: Blood cultures: 10/28 ngtd OR cultures: 10/28 GNR Urine cultures: 10/28 neg Current Antimicrobials: Levaquin Flagyl Previous Antimicrobials: zosyn Cefepime Flagyl Fluconazole Objective - Exam Narrative Exam: General appearance: Alert in NAD, conversant Eyes: anicteric sclerae, moist conjunctivae; no lid-lag; PERRLA HENT: Atraumatic; oropharynx clear +NGT Neck: Trachea midline; supple, no thyromegaly or lymphadenopathy Lungs: CTA, with normal respiratory effort and no intercostal retractions CV: RRR Abdomen: Soft, diffuse tenderness, midline surgical wound with surgical dressings, colostomy bag. Extremities: No peripheral edema or extremity lymphadenopathy Skin: Normal temperature, turgor and texture; no rash, ulcers or subcutaneous nodules Psych: Appropriate affect, alert and oriented to person, place and time. Neuro: alert and oriented x 3. Moving all extermities Lines: - Constitutional Vitals: Vital Signs Temp Pulse Resp BP Pulse Ox 98.4 F 62 18 125/79 96 11/05/17 07:09 11/05/17 07:09 11/05/17 07:09 11/05/17 07:09 11/05/17 07:09 Temperature -Last 24 Hours Temperature 98.4 F Temperature 98.6 F Temperature 98.5 F Temperature 98.2 F Temperature 98.1 F - Labs CBC & Chem 7: 11/02/17 04:14 11/02/17 04:14
== END 2017-11-05 12:30 | disposition home health service (06) | DRG 854 ==
LOC: ED 09:27 → OR 09:27 → 3A 15:16 → EDSTATUS 16:23 → 3B-SURG 17:58 → IMCU 19:52 → 3B-SURG 10-31 13:23
PROVIDERS: ADMIT Internal Medicine; ATTEND Internal Medicine
PROC: 0DBN0ZZ Excision of Sigmoid Colon, Open Approach (ICD-10-PCS; principal; 2017-10-28)
PROC: 0D1N0Z4 Bypass Sigmoid Colon to Cutaneous, Open Approach (ICD-10-PCS; 2017-10-28)
DX: A41.9 Sepsis, unspecified organism (principal); K57.20 Diverticulitis of large intestine with perforation and abscess without bleeding; I10 Essential (primary) hypertension; G89.29 Other chronic pain; M54.89 Other dorsalgia; M19.90 Unspecified osteoarthritis, unspecified site; F17.200 Nicotine dependence, unspecified, uncomplicated; Z72.89 Other problems related to lifestyle; F12.90 Cannabis use, unspecified, uncomplicated; Z90.49 Acquired absence of other specified parts of digestive tract; Z98.1 Arthrodesis status; E66.9 Obesity, unspecified
CPT/HCPCS: 36415; 74018; 74022; 74177; 80048; 80053; 81001; 82140; 82962; 83036; 83690; 85025; 85027; 87040; 87075; 87086; 87116; 87186; 88307; 93005; 93010; G8978-GP; G8980-GP; J0692; J0696; J1100; J1170; J1450; J1885; J2250; J2270; J2405; J2543; J2704; J2710; J2765; J7030; Q9967

== ENCOUNTER 2018-03-17 04:43 | Emergency (ER) | payer MEDICARE | END 2018-03-17 07:22 | disposition left against medical advice (07) | LOC: ED 04:43 ==

== ENCOUNTER 2018-12-09 16:11 | Emergency (ER) | payer MEDICARE ==
--- NOTE | 2018-12-09 17:09 | Emergency Department Report ---
Blank Doc - Documentation Documentation: 58-year-old male that presents with chest pain intermittent x3 weeks. Denies any SOB. This initial assessment/diagnostic orders/clinical plan/treatment(s) is/are subject to change based on patient's health status, clinical progression and re- assessment by fellow clinical providers in the ED. Further treatment and workup at subsequent clinical providers discretion. Patient/guardians urged not to elope from the ED as their condition may be serious if not clinically assessed and managed. Initial orders include: 1- Patient sent to [facility] for further evaluation and treatment 2- labs 3- UA 4- CXR
[2018-12-09 17:11] VITALS: BP 168/100
--- NOTE | 2018-12-09 18:02 | XRay Report ---
CHEST 2 VIEWS INDICATION / CLINICAL INFORMATION: Chest pain on and off for 3 weeks. Tingling to arms and legs. COMPARISON: None available. FINDINGS: SUPPORT DEVICES: None. HEART / MEDIASTINUM: The heart size and pulmonary vasculature are normal. The aorta is normal in enmanuel mariana. LUNGS / PLEURA: No significant pulmonary or pleural abnormality. No pneumothorax. ADDITIONAL FINDINGS: No significant additional findings. IMPRESSION: No acute findings. Signer Name: Oskar Almeida MD Signed: 12/09/2018 5:57 PM Workstation Name: [id number]
[2018-12-09 19:44] LABS: Basophils % (Auto) 0.4 % (0.0-1.8); Eosinophils # (Auto) 0.2 K/mm3 (0.0-0.4); Eosinophils % (Auto) 2.3 % (0.0-4.3); Hemoglobin 16.7 gm/dl (11.8-15.2); Lymphocytes # (Auto) 2.1 K/mm3 (1.2-5.4); Lymphocytes % (Auto) 22.7 % (13.4-35.0); Mean Corpuscular HGB Conc 34 % (32-34); Mean Corpuscular Volume 96 fl (84-94); Monocytes # (Auto) 0.6 K/mm3 (0.0-0.8); Monocytes % (Auto) 6.8 % (0.0-7.3); Platelet Count 141 K/mm3 (140-440); Red Blood Count 5.22 M/mm3 (3.65-5.03); Red Cell Distribution Width 14.2 % (13.2-15.2)
[2018-12-09 19:55] LABS: INR 0.87 (0.87-1.13)
[2018-12-09 19:56] LABS: Partial Thromboplastin Time 20.2 Sec. (24.2-36.6)
[2018-12-09 20:37] LABS: BUN/Creatinine Ratio 24; Blood Urea Nitrogen 19 mg/dL (9-20); Calcium 9.8 mg/dL (8.4-10.2); Hemolysis Index 21
== END 2018-12-09 22:10 | disposition left against medical advice (07) ==
LOC: ED 16:11
DX: R07.89 Other chest pain (principal); R20.2 Paresthesia of skin; Z53.21 Procedure and treatment not carried out due to patient leaving prior to being seen by health care provider
CPT/HCPCS: 36415; 71046; 80048; 84484; 85025; 85610; 85730; 93005; 93010

== ENCOUNTER 2019-05-27 16:35 | Emergency (ER) | payer MEDICARE ==
[2019-05-27 16:45] VITALS: BP 144/73
--- NOTE | 2019-05-27 17:29 | Emergency Department Report ---
ED ENT HPI - General Chief complaint: Sore Throat Stated complaint: TONSILS WITH WHITE PUSS Time Seen by Provider: 05/27/19 16:48 Source: patient Mode of arrival: Ambulatory Limitations: No Limitations - History of Present Illness Initial comments: This is a 58-year-old male nontoxic, well nourished in appearance, no acute signs of distress presents to the ED with c/o of sore throat. Patient describes sore throat as swallowing razer blades. Patient denies any fever, chills, headache, stiff neck, nausea, vomiting, chest pain, shortness of breath, nu mbness or tingling. Patient denies any drooling or hoarseness. Patient denies any allergies. MD complaint: sore throat -: days(s) Location: throat Severity: mild Severity scale (0 -10): 8 Quality: aching Consistency: constant Improves with: none Worsens with: swallowing Associated Symptoms: pain with swallowing, sore throat. denies: fever, cough, gum swelling, toothache, tinnitus, hearing loss, discharge from ear, rhinorrhea - Related Data Home Medications Medication Instructions Recorded Confirmed Last Taken Lisinopril/Hydrochlorothiazide 20 mg PO DAILY 12/03/14 11/02/17 Unknown [Zestoretic 20-25 mg] Previous Rx's Medication Instructions Recorded Last Taken Type Cyclobenzaprine [Flexeril 10 MG 10 mg PO TID PRN #20 tablet 12/03/14 Unknown Rx TAB] methOCARBAMOL [Robaxin TAB] 500 mg PO Q8HR PRN #15 tablet 04/08/16 Unknown Rx HYDROcodone/APAP 7.5-325 [[place] 1 each PO Q6HR PRN #15 tablet 11/05/17 Unknown Rx 7.5-325 mg TAB] diphenhydrAMINE [Benadryl CAP] 25 mg PO QHS PRN #14 capsule 11/05/17 Unknown Rx levoFLOXacin [Levaquin] 750 mg PO QDAY #4 tablet 11/05/17 Unknown Rx levoFLOXacin [Levaquin] 750 mg PO QDAY 10 Days #10 tablet 11/05/17 Unknown Rx metroNIDAZOLE [Flagyl] 500 mg PO Q8HR 10 Days #30 tablet 11/05/17 Unknown Rx Amoxicillin [Amoxicillin TAB] 875 mg PO BID #20 tablet 05/27/19 Unknown Rx Nystas/Diphen/Xyl Visc/Mylanta 15 ml MM Q4H PRN 5 Days ml 05/27/19 Unknown Rx [Magic Mouthwash] Allergies Allergy/AdvReac Type Severity Reaction Status Date / Time No Known Allergies Allergy Verified 04/08/16 16:56 ED Dental HPI - General Chief complaint: Sore Throat Stated complaint: TONSILS WITH WHITE PUSS Time Seen by Provider: 05/27/19 16:48 Source: patient Mode of arrival: Ambulatory Limitations: No Limitations - Related Data Home Medications Medication Instructions Recorded Confirmed Last Taken Lisinopril/Hydrochlorothiazide 20 mg PO DAILY 12/03/14 11/02/17 Unknown [Zestoretic 20-25 mg] Previous Rx's Medication Instructions Recorded Last Taken Type Cyclobenzaprine [Flexeril 10 MG 10 mg PO TID PRN #20 tablet 12/03/14 Unknown Rx TAB] methOCARBAMOL [Robaxin TAB] 500 mg PO Q8HR PRN #15 tablet 04/08/16 Unknown Rx HYDROcodone/APAP 7.5-325 [[place] 1 each PO Q6HR PRN #15 tablet 11/05/17 Unknown Rx 7.5-325 mg TAB] diphenhydrAMINE [Benadryl CAP] 25 mg PO QHS PRN #14 capsule 11/05/17 Unknown Rx levoFLOXacin [Levaquin] 750 mg PO QDAY #4 tablet 11/05/17 Unknown Rx levoFLOXacin [Levaquin] 750 mg PO QDAY 10 Days #10 tablet 11/05/17 Unknown Rx metroNIDAZOLE [Flagyl] 500 mg PO Q8HR 10 Days #30 tablet 11/05/17 Unknown Rx Amoxicillin [Amoxicillin TAB] 875 mg PO BID #20 tablet 05/27/19 Unknown Rx Nystas/Diphen/Xyl Visc/Mylanta 15 ml MM Q4H PRN 5 Days ml 05/27/19 Unknown Rx [Magic Mouthwash] Allergies Allergy/AdvReac Type Severity Reaction Status Date / Time No Known Allergies Allergy Verified 04/08/16 16:56 ED Review of Systems ROS: Stated complaint: TONSILS WITH WHITE PUSS Other details as noted in HPI Constitutional: denies: chills, fever Eyes: denies: eye pain, eye discharge, vision change ENT: throat pain. denies: ear pain Respiratory: denies: cough, shortness of breath, wheezing Cardiovascular: denies: chest pain, palpitations Endocrine: no symptoms reported Gastrointestinal: denies: abdominal pain, nausea, diarrhea Genitourinary: denies: urgency, dysuria Musculoskeletal: denies: back pain, joint swelling, arthralgia Skin: denies: rash, lesions Neurological: denies: headache, weakness, paresthesias Psychiatric: denies: anxiety, depression Hematological/Lymphatic: denies: easy bleeding, easy bruising ED Past Medical Hx - Past Medical History Previous Medical History?: Yes Hx Hypertension: Yes Hx Congestive Heart Failure: No Hx Diabetes: No Hx Arthritis: Yes Hx Asthma: No Hx COPD: No Additional medical history: CHRONIC BACK PAIN, diverticulitis. high cholesterol - Surgical History Past Surgical History?: Yes Hx Appendectomy: Yes Additional Surgical History: Back surgery X 3, adb. diverticulitis sx 2018 - Social History Smoking Status: Never Smoker Substance Use Type: Alcohol, Marijuana - Medications Home Medications: Home Medications Medication Instructions Recorded Confirmed Last Taken Type Cyclobenzaprine [Flexeril 10 MG 10 mg PO TID PRN #20 tablet 12/03/14 11/02/17 Unknown Rx TAB] Lisinopril/Hydrochlorothiazide 20 mg PO DAILY 12/03/14 11/02/17 Unknown History [Zestoretic 20-25 mg] methOCARBAMOL [Robaxin TAB] 500 mg PO Q8HR PRN #15 tablet 04/08/16 11/02/17 Unknown Rx HYDROcodone/APAP 7.5-325 [[place] 1 each PO Q6HR PRN #15 tablet 11/05/17 Unknown Rx 7.5-325 mg TAB] diphenhydrAMINE [Benadryl CAP] 25 mg PO QHS PRN #14 capsule 11/05/17 Unknown Rx levoFLOXacin [Levaquin] 750 mg PO QDAY #4 tablet 11/05/17 Unknown Rx levoFLOXacin [Levaquin] 750 mg PO QDAY 10 Days #10 tablet 11/05/17 Unknown Rx metroNIDAZOLE [Flagyl] 500 mg PO Q8HR 10 Days #30 tablet 11/05/17 Unknown Rx Amoxicillin [Amoxicillin TAB] 875 mg PO BID #20 tablet 05/27/19 Unknown Rx Nystas/Diphen/Xyl Visc/Mylanta 15 ml MM Q4H PRN 5 Days ml 05/27/19 Unknown Rx [Magic Mouthwash] ED Physical Exam - General Limitations: No Limitations General appearance: alert, in no apparent distress - Head Head exam: Present: atraumatic, normocephalic - Eye Eye exam: Present: normal appearance - Expanded ENT Exam Expanded Ear exam: Present: normal external inspection Mouth exam: Present: normal external inspection, tongue normal. Absent: drooling, trismus, muffled voice Teeth exam: Present: normal inspection Throat exam: Positive: tonsillar erythema. Negative: tonsillomegaly, tonsillar exudate, R peritonsillar mass, L peritonsillar mass - Neck Neck exam: Present: normal inspection, full ROM. Absent: tenderness, meningismus, lymphadenopathy - Extremities Exam Extremities exam: Present: normal inspection, full ROM - Back Exam Back exam: Present: normal inspection, full ROM - Neurological Exam Neurological exam: Present: alert, oriented X3, normal gait - Psychiatric Psychiatric exam: Present: normal affect, normal mood - Skin Skin exam: Present: warm, dry, intact, normal color. Absent: rash ED Course Vital Signs 05/27/19 05/27/19 16:43 16:44 Temperature 98.7 F Pulse Rate 83 Respiratory 20 Rate Blood Pressure 144/73 - Reevaluation(s) Reevaluation #1: 05/27/19 17:27 Patient is speaking in full sentences with no signs of distress noted. ED Medical Decision Making - Medical Decision Making Patient presents with pharyngitis. Patient be discharged with amoxicillin. Patient was instructed to follow-up with a primary care doctor in 3-5 days or if symptoms worsen and continue return to emergency room as soon as possible. At time of discharge, the patient does not seem toxic or ill in appearance. No acute signs of distress noted. Patient agrees to discharge treatment plan of care. No further questions noted by the patient. Critical care attestation.: If time is entered above; I have spent that time in minutes in the direct care of this critically ill patient, excluding procedure time. ED Disposition Clinical Impression: Pharyngitis Qualifiers: Pharyngitis/tonsillitis etiology: unspecified etiology Qualified Code(s): J02.9 - Acute pharyngitis, unspecified Disposition: - TO HOME OR SELFCARE Is pt being admited?: No Does the pt Need Aspirin: No Condition: Stable Instructions: Pharyngitis (ED) Additional Instructions: Follow-up with a primary care doctor in 3-5 days or if symptoms worsen and continue return to emergency room as soon as possible. Prescriptions: Amoxicillin [Amoxicillin TAB] 875 mg PO BID #20 tablet Nystas/Diphen/Xyl Visc/Mylanta [Magic Mouthwash] 15 ml MM Q4H PRN 5 Days ml PRN Reason: Sore Throat Referrals: PRIMARY CAREMD [Referring] - 3-5 Days GABE FLOWER MD [Staff Physician] - 3-5 Days [facility] [Provider Group] - 3-5 Days
== END 2019-05-27 17:49 | disposition home or self-care (01) ==
LOC: ED 16:35
DX: J02.9 Acute pharyngitis, unspecified (principal); I10 Essential (primary) hypertension; M13.88 Other specified arthritis, other site; E78.00 Pure hypercholesterolemia, unspecified; F12.10 Cannabis abuse, uncomplicated; G89.29 Other chronic pain; Z90.49 Acquired absence of other specified parts of digestive tract; Z79.899 Other long term (current) drug therapy
CPT/HCPCS: 99282

== ENCOUNTER 2019-06-07 19:02 | Emergency (ER) | payer MEDICARE ==
[2019-06-07 19:12] VITALS: BP 139/74
--- NOTE | 2019-06-07 21:22 | Emergency Department Report ---
ED ENT HPI - General Chief complaint: Sore Throat Stated complaint: THROAT PAIN Time Seen by Provider: 06/07/19 21:06 Source: patient Mode of arrival: Ambulatory Limitations: No Limitations - History of Present Illness Initial comments: This pleasant 58-year-old male presents the emergency department chief complaint of sore throat for the past 2 weeks. Patient was seen approximately 2 weeks ago and given amoxicillin for tonsillitis however he reports the symptoms dramatically improved but he was still having some pain in his throat. He has tried calling his primary care doctor they have not returned his call. He denies any fevers, cough, sick contacts, chest pain, shortness of breath, nausea, vomiting, diarrhea, headache, dizziness, neck pain or stiffness or any other associated symptoms. Patient has a past medical history of hypertension that is controlled with Zestoretic. He denies any known allergies to medications. - Related Data Home Medications Medication Instructions Recorded Confirmed Last Taken Lisinopril/Hydrochlorothiazide 20 mg PO DAILY 12/03/14 11/02/17 Unknown [Zestoretic 20-25 mg] Previous Rx's Medication Instructions Recorded Last Taken Type Cyclobenzaprine [Flexeril 10 MG 10 mg PO TID PRN #20 tablet 12/03/14 Unknown Rx TAB] methOCARBAMOL [Robaxin TAB] 500 mg PO Q8HR PRN #15 tablet 04/08/16 Unknown Rx HYDROcodone/APAP 7.5-325 [[place] 1 each PO Q6HR PRN #15 tablet 11/05/17 Unknown Rx 7.5-325 mg TAB] diphenhydrAMINE [Benadryl CAP] 25 mg PO QHS PRN #14 capsule 11/05/17 Unknown Rx levoFLOXacin [Levaquin] 750 mg PO QDAY #4 tablet 11/05/17 Unknown Rx levoFLOXacin [Levaquin] 750 mg PO QDAY 10 Days #10 tablet 11/05/17 Unknown Rx metroNIDAZOLE [Flagyl] 500 mg PO Q8HR 10 Days #30 tablet 11/05/17 Unknown Rx Amoxicillin [Amoxicillin TAB] 875 mg PO BID #20 tablet 05/27/19 Unknown Rx Nystas/Diphen/Xyl Visc/Mylanta 15 ml MM Q4H PRN 5 Days ml 05/27/19 Unknown Rx [Magic Mouthwash] Fluticasone [Flonase] 1 spray NS QDAY #1 bottle 06/07/19 Unknown Rx Loratadine [Claritin] 10 mg PO DAILY #20 tablet 06/07/19 Unknown Rx Allergies Allergy/AdvReac Type Severity Reaction Status Date / Time No Known Allergies Allergy Verified 04/08/16 16:56 ED Dental HPI - General Chief complaint: Sore Throat Stated complaint: THROAT PAIN Time Seen by Provider: 06/07/19 21:06 Source: patient Mode of arrival: Ambulatory Limitations: No Limitations - Related Data Home Medications Medication Instructions Recorded Confirmed Last Taken Lisinopril/Hydrochlorothiazide 20 mg PO DAILY 12/03/14 11/02/17 Unknown [Zestoretic 20-25 mg] Previous Rx's Medication Instructions Recorded Last Taken Type Cyclobenzaprine [Flexeril 10 MG 10 mg PO TID PRN #20 tablet 12/03/14 Unknown Rx TAB] methOCARBAMOL [Robaxin TAB] 500 mg PO Q8HR PRN #15 tablet 04/08/16 Unknown Rx HYDROcodone/APAP 7.5-325 [[place] 1 each PO Q6HR PRN #15 tablet 11/05/17 Unknown Rx 7.5-325 mg TAB] diphenhydrAMINE [Benadryl CAP] 25 mg PO QHS PRN #14 capsule 11/05/17 Unknown Rx levoFLOXacin [Levaquin] 750 mg PO QDAY #4 tablet 11/05/17 Unknown Rx levoFLOXacin [Levaquin] 750 mg PO QDAY 10 Days #10 tablet 11/05/17 Unknown Rx metroNIDAZOLE [Flagyl] 500 mg PO Q8HR 10 Days #30 tablet 11/05/17 Unknown Rx Amoxicillin [Amoxicillin TAB] 875 mg PO BID #20 tablet 05/27/19 Unknown Rx Nystas/Diphen/Xyl Visc/Mylanta 15 ml MM Q4H PRN 5 Days ml 05/27/19 Unknown Rx [Magic Mouthwash] Fluticasone [Flonase] 1 spray NS QDAY #1 bottle 06/07/19 Unknown Rx Loratadine [Claritin] 10 mg PO DAILY #20 tablet 06/07/19 Unknown Rx Allergies Allergy/AdvReac Type Severity Reaction Status Date / Time No Known Allergies Allergy Verified 04/08/16 16:56 ED Review of Systems ROS: Stated complaint: THROAT PAIN Other details as noted in HPI Comment: All other systems reviewed and negative Constitutional: denies: chills, fever Eyes: denies: eye pain, eye discharge, vision change ENT: throat pain. denies: ear pain Respiratory: denies: cough, shortness of breath, wheezing Cardiovascular: denies: chest pain, palpitations Endocrine: no symptoms reported Gastrointestinal: denies: abdominal pain, nausea, diarrhea Genitourinary: denies: urgency, dysuria Musculoskeletal: denies: back pain, joint swelling, arthralgia Skin: denies: rash, lesions Neurological: denies: headache, weakness, paresthesias Psychiatric: denies: anxiety, depression Hematological/Lymphatic: denies: easy bleeding, easy bruising ED Past Medical Hx - Past Medical History Previous Medical History?: Yes Hx Hypertension: Yes Hx Congestive Heart Failure: No Hx Diabetes: No Hx Arthritis: Yes Hx Asthma: No Hx COPD: No Additional medical history: CHRONIC BACK PAIN, diverticulitis. high cholesterol - Surgical History Past Surgical History?: Yes Hx Appendectomy: Yes Additional Surgical History: Back surgery X 3, adb. diverticulitis sx 2018 - Social History Smoking Status: Never Smoker Substance Use Type: Marijuana - Medications Home Medications: Home Medications Medication Instructions Recorded Confirmed Last Taken Type Cyclobenzaprine [Flexeril 10 MG 10 mg PO TID PRN #20 tablet 12/03/14 11/02/17 Unknown Rx TAB] Lisinopril/Hydrochlorothiazide 20 mg PO DAILY 12/03/14 11/02/17 Unknown History [Zestoretic 20-25 mg] methOCARBAMOL [Robaxin TAB] 500 mg PO Q8HR PRN #15 tablet 04/08/16 11/02/17 Unknown Rx HYDROcodone/APAP 7.5-325 [[place] 1 each PO Q6HR PRN #15 tablet 11/05/17 Unknown Rx 7.5-325 mg TAB] diphenhydrAMINE [Benadryl CAP] 25 mg PO QHS PRN #14 capsule 11/05/17 Unknown Rx levoFLOXacin [Levaquin] 750 mg PO QDAY #4 tablet 11/05/17 Unknown Rx levoFLOXacin [Levaquin] 750 mg PO QDAY 10 Days #10 tablet 11/05/17 Unknown Rx metroNIDAZOLE [Flagyl] 500 mg PO Q8HR 10 Days #30 tablet 11/05/17 Unknown Rx Amoxicillin [Amoxicillin TAB] 875 mg PO BID #20 tablet 05/27/19 Unknown Rx Nystas/Diphen/Xyl Visc/Mylanta 15 ml MM Q4H PRN 5 Days ml 05/27/19 Unknown Rx [Magic Mouthwash] Fluticasone [Flonase] 1 spray NS QDAY #1 bottle 06/07/19 Unknown Rx Loratadine [Claritin] 10 mg PO DAILY #20 tablet 06/07/19 Unknown Rx ED Physical Exam - General Limitations: No Limitations General appearance: alert, in no apparent distress - Head Head exam: Present: atraumatic, normocephalic - Eye Eye exam: Present: normal appearance, PERRL, EOMI Pupils: Present: normal accommodation - ENT ENT exam: Present: normal exam, normal orophraynx, mucous membranes moist, other (Postnasal drip, no peritonsillar bulging, retropharyngeal bulging or tongue elevation, no trismus, dysphonia or drooling. No lymphadenopathy.) - Neck Neck exam: Present: normal inspection, full ROM. Absent: meningismus - Respiratory Respiratory exam: Present: normal lung sounds bilaterally. Absent: respiratory distress, wheezes, rales, rhonchi, stridor, accessory muscle use - Cardiovascular Cardiovascular Exam: Present: regular rate, normal rhythm, normal heart sounds. Absent: systolic murmur, diastolic murmur, rubs, gallop - GI/Abdominal GI/Abdominal exam: Present: soft, normal bowel sounds. Absent: distended, tenderness, rebound, rigid - Rectal Rectal exam: Present: deferred - Extremities Exam Extremities exam: Present: normal inspection, full ROM. Absent: tenderness, calf tenderness - Back Exam Back exam: Present: normal inspection, full ROM. Absent: tenderness, CVA tenderness (R), CVA tenderness (L) - Neurological Exam Neurological exam: Present: alert, oriented X3 - Psychiatric Psychiatric exam: Present: normal affect, normal mood - Skin Skin exam: Present: warm, dry, intact, normal color. Absent: rash ED Course Vital Signs 06/07/19 19:09 Temperature 99.0 F Pulse Rate 68 Respiratory 18 Rate Blood Pressure 139/74 O2 Sat by Pulse 97 Oximetry ED Medical Decision Making - Medical Decision Making Patient is nontoxic in no acute distress. No evidence of abscess in the throat or face. Patient has no dysphonia or drooling. He was already finished a course of antibiotics and his throat does not particularly look like a bacterial infection. His Centor criteria was negative. I suspect his symptoms are likely more related to allergic rhinitis with some obvious postnasal drip in the posterior pharynx. Recommended antihistamines and will prescribe a short course of a Medrol Dosepak recommended Flonase and follow-up with primary care doctor. Patient was concerned about COVID-19 however without fever, shortness of breath cough hypoxia or any other objective findings I have very low suspicion for this. He has not any sick contacts or recent travel. Recommended that he continue to social distance and return to the emergency part if he develops any changing worsening symptoms. He verbalized understanding of the diagnosis, treatment plan and follow-up instructions and all of his questions were answered. - Differential Diagnosis Strep throat, tonsillitis, allergic rhinitis Critical care attestation.: If time is entered above; I have spent that time in minutes in the direct care of this critically ill patient, excluding procedure time. ED Disposition Clinical Impression: Post-nasal drip Allergic rhinitis Qualifiers: Allergic rhinitis trigger: pollen Allergic rhinitis seasonality: seasonal Calixt[place] lified Code(s): J30.1 - Allergic rhinitis due to pollen Disposition: DC-01 TO HOME OR SELFCARE Is pt being admited?: No Condition: Stable Instructions: Allergic Rhinitis (ED) Prescriptions: Loratadine [Claritin] 10 mg PO DAILY #20 tablet Fluticasone [Flonase] 1 spray NS QDAY #1 bottle Referrals: PRIMARY CARE, [Primary Care Provider] - 3-5 Days [facility] [Provider Group] - 3-5 Days Time of Disposition: 21:21
== END 2019-06-07 21:49 | disposition home or self-care (01) ==
LOC: ED 19:02
DX: J30.9 Allergic rhinitis, unspecified (principal); R09.82 Postnasal drip; I10 Essential (primary) hypertension; M19.91 Primary osteoarthritis, unspecified site; Z90.49 Acquired absence of other specified parts of digestive tract; F12.10 Cannabis abuse, uncomplicated; Z79.2 Long term (current) use of antibiotics; Z79.899 Other long term (current) drug therapy
CPT/HCPCS: 99282